=== PATIENT | female | born 1950 | race Caucasian/White ===

== ENCOUNTER → 2017-11-28 | Outpatient (CLI) | payer BC ==
--- NOTE | 2017-11-28 19:12 | CT ---
EXAM: CT Angiography Chest With Intravenous Contrast CLINICAL HISTORY: [id number]. Shortness of breath. TECHNIQUE: Axial computed tomographic angiography images of the chest with intravenous contrast using pulmonary embolism protocol. CTDI is 24.0 mGy and DLP is 149.9 mGy-cm. This CT exam was performed using one or more of the following dose reduction techniques: automated exposure control, adjustment of the mA and/or kV according to patient size, and/or use of iterative reconstruction technique. MIP reconstructed images were created and reviewed. Coronal and sagittal reformatted images were created and reviewed. COMPARISON: No relevant prior studies available. FINDINGS: Pulmonary arteries: Small weblike filling defect proximal left upper lobe pulmonary artery may be artifact, cannot exclude a sequela of old pulmonary embolism, axial images 54-51, and sagittal image 95, coronal image 62. Prominent left pulmonary artery may be pulmonary arterial hypertension. Aorta: No acute findings. No thoracic aortic aneurysm. Lungs: Mild peribronchial thickening. No mass. Pleural space: Unremarkable. No significant effusion. No pneumothorax. Heart: Small pericardial fluid. No evidence of RV dysfunction. Bones/joints: Superior endplate of T12 Schmorl's nodule with mild compression deformity, age-indeterminate. No dislocation. Soft tissues: Unremarkable. Lymph nodes: Small to borderline mediastinal lymph nodes. Other findings: Right chest port. IMPRESSION: 1. Small, weblike filling defect proximal left upper lobe pulmonary artery may be artifact, cannot exclude a sequela of old pulmonary embolism, axial images 54-51, and sagittal image 95, coronal image 62. 2. Prominent left pulmonary artery may be pulmonary arterial hypertension. 3. Mild peribronchial thickening, query bronchitis. No focal infiltrate or consolidation. 4. Superior endplate of T12 Schmorl's nodule with mild compression deformity, age-indeterminate.
== END | disposition home or self-care (01) ==
LOC: RADCTMAIN 16:43
PROVIDERS: ATTEND Internal Medicine Hematology & Oncology
DX: J98.09 Other diseases of bronchus, not elsewhere classified (principal); R91.8 Other nonspecific abnormal finding of lung field
CPT/HCPCS: 71275; Q9967

== ENCOUNTER → 2018-12-02 | Outpatient (CLI) | payer MEDICARE ==
--- NOTE | 2018-12-04 09:16 | MM ---
Reason for exam: screening (asymptomatic). Last mammogram was performed 5 years and 8 months ago. History: Patient is postmenopausal. Took hormonal contraceptives for 10 years. Physical Findings: A clinical breast exam by your physician is recommended on an annual basis and results should be correlated with mammographic findings. MG 3D Screening Mammo W/Cad Bilateral CC and MLO view(s) were taken. Prior study comparison: March 24, 2013, bilateral digital screening mammo w/CAD. June 29, 2010, bilateral digital screening mammogram. There are scattered fibroglandular densities. Lateral left breast nodularity is unchanged. A couple left punctate calcifications posteriorly also unchanged. No significant changes when compared with prior studies. ASSESSMENT: Negative, BI-RAD 1 RECOMMENDATION: Routine screening mammogram of both breasts in 1 year.
== END ==
LOC: RADMAMWWP 14:36
PROVIDERS: ATTEND Midwife
DX: Z12.31 Encounter for screening mammogram for malignant neoplasm of breast (principal)
CPT/HCPCS: 77063; 77067

== ENCOUNTER → 2018-12-20 | Outpatient (CLI) | payer MEDICARE ==
--- NOTE | 2018-12-20 14:25 | BD ---
EXAMINATION TYPE: Axial Bone Density DATE OF EXAM: 12/20/2018 COMPARISON: NONE CLINICAL HISTORY: Osteoporosis Height: 5 FT 4 IN Weight: 117 FRAX RISK QUESTIONS: Secondary Osteoporosis: 3. 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 Bone mineral density as measured about the Lumbar spine is: ----- L1-L4(G/cm2): 0.867 T Score Values are as follows: ----- L2: -2.8 ----- L3: -2.2 ----- L4: -2.5 ----- L1-L4: -2.6 Bone mineral density has: INCREASED 8.4 %SINCE STUDY 2009 Bone mineral density about the R hip (g/cm2): 0.566 Bone mineral density about the L hip (g/cm2): 0.590 T Score values are as follows: -----R Neck: -3.4 -----L Neck: -3.2 -----R Total: -3.3 -----L Total: -3.1 Bone mineral density has: DECREASED -10.0%SINCE STUDY 2009 IMPRESSION: Osteoporosis (T Score less than -2.5). There is increased fracture risk and therapy is usually indicated based on age. Re-Screen 1-2 years. NOTE: T-SCORE=SD OF THE YOUNG ADULT MEAN.
== END | disposition home or self-care (01) ==
LOC: RADBDWWP 13:04
PROVIDERS: ATTEND Midwife
DX: M81.0 Age-related osteoporosis without current pathological fracture (principal)
CPT/HCPCS: 77080

== ENCOUNTER → 2019-12-04 | Outpatient (CLI) | payer MEDICARE ==
--- NOTE | 2019-12-05 13:37 | MM ---
Reason for exam: screening (asymptomatic). Last mammogram was performed 1 year ago. History: Patient is postmenopausal. Took hormonal contraceptives for 10 years. Physical Findings: A clinical breast exam by your physician is recommended on an annual basis and results should be correlated with mammographic findings. MG 3D Screening Mammo W/Cad Bilateral CC and MLO view(s) were taken. Prior study comparison: December 02, 2018, bilateral MG 3d screening mammo w/cad. March 24, 2013, bilateral digital screening mammo w/CAD. There are scattered fibroglandular densities. Stable intramammary node left upper outer quadrant. No significant changes when compared with prior studies. ASSESSMENT: Negative, BI-RAD 1 RECOMMENDATION: Routine screening mammogram of both breasts in 1 year.
== END | disposition home or self-care (01) ==
LOC: RADMAMWWP 16:33
PROVIDERS: ATTEND Family Medicine
DX: Z12.31 Encounter for screening mammogram for malignant neoplasm of breast (principal)
CPT/HCPCS: 77063; 77067

== ENCOUNTER 2020-04-08 10:47 | Outpatient (CLI) | payer MEDICARE | END 2020-04-08 10:48 | disposition home or self-care (01) | LOC: LABWHC1 10:47 | PROVIDERS: ATTEND Nurse Practitioner Adult Health | DX: Z53.9 Procedure and treatment not carried out, unspecified reason (principal) ==

== ENCOUNTER → 2020-05-25 | Outpatient (CLI) | payer MEDICARE ==
[2020-05-25 14:13] LABS: HCT 47.2 % (34.0-46.0); HGB 15.1 gm/dL (11.4-16.0); MCH 31.8 pg (25.0-35.0); MCV 99.6 fL (80.0-100.0); Mean Platelet Volume 7.3; Platelet Count 295 k/uL (150-450); RBC 4.74 m/uL (3.80-5.40); RDW 13.3 % (11.5-15.5); WBC 8.9 k/uL (3.8-10.6)
[2020-05-25 14:24] LABS: African American GFR (CKD) >90 (>60 ml/min/1.73 sqM); Anion Gap 5 mmol/L; Blood Urea Nitrogen 15 mg/dL (7-17); Carbon Dioxide 29 mmol/L (22-30); Chloride 103 mmol/L (98-107); Non-African American GFR(CKD) >90 (>60 ml/min/1.73 sqM); Potassium 4.8 mmol/L (3.5-5.1); Sodium 137 mmol/L (137-145)
== END | disposition home or self-care (01) ==
LOC: LABPAT 13:10
PROVIDERS: ATTEND Internal Medicine Interventional Cardiology
DX: Z01.818 Encounter for other preprocedural examination (principal); I25.10 Atherosclerotic heart disease of native coronary artery without angina pectoris
CPT/HCPCS: 36415; 80051; 82565; 84520; 85027

== ENCOUNTER 2020-05-31 09:13 | Day surgery (SDC) | payer MEDICARE ==
[2020-05-25 12:49] VITALS: BMI 20.1
[~2020-05-31 09:13] MED LIST: ALPRAZolam 0.25 MG TAB PO PRN; ALPRAZolam 0.5 MG TAB PO PRN; ASPIRIN 325 MG TAB PO ONE; ATORVASTATIN 80 MG TAB PO ONE; NITROGLYCERIN SL TABS 0.4 MG TAB SUBLINGUAL PRN; SODIUM CHLORIDE 0.9% 1,000 ML in EMPTY BAG 1 BAG IV ONE
[2020-05-31] MEDS ORDERED: LIDOCAINE 1% INJ 10MG/ML (20 ML MDV) ONE (09:53)
[2020-05-31] MEDS ORDERED: VERAPAMIL 2.5 MG/ML 2 ML AMP ONE (09:54)
[2020-05-31] MEDS ORDERED: SODIUM CHLORIDE 0.9% 1,000 ML IV ONE (09:57)
[2020-05-31 10:00] VITALS: RESP 16; TEMP 53.8
[2020-05-31] MEDS ORDERED: HEPARIN SODIUM 1,000 UN/ML (10ML VL) ONE (10:18)
[2020-05-31] MEDS ORDERED: fentaNYL (PF) 50 MCG/ML 2 ML AMP ONE (10:18)
[2020-05-31] MEDS: MIDAZOLAM 2 MG/2 ML VIAL IVP ONE ×2 (10:31→10:38)
[2020-05-31] MEDS ORDERED: LIDOCAINE 1% INJ 10MG/ML (20 ML MDV) SQ ONE (10:32)
[2020-05-31] MEDS: VERAPAMIL SYRINGE (5 MG/10 ML) INTRAARTER ONE ×2 (10:33→10:51)
[2020-05-31] MEDS ORDERED: HEPARIN SODIUM 1,000 UN/ML (10ML VL) IV ONE (10:34)
[2020-05-31] MEDS ORDERED: IOPAMIDOL-370 125ML BTL INJ ONE (10:51)
[2020-05-31] MEDS ORDERED: RX INFO: IV CONTRAST WAS GIVEN 1 EACH MISC MISCELLANE PRN (10:57)
[2020-05-31] MEDS ORDERED: SODIUM CHLORIDE 0.9% 1,000 ML IV SCH (11:00)
[2020-05-31] MEDS ORDERED: METOPROLOL TARTRATE 12.5 MG TAB PO STA (11:12)
--- NOTE | 2020-05-31 15:42 | CC ---
CARDIAC CATHETERIZATION REPORT DATE OF SERVICE: 05/31/2020 PERFORMING PHYSICIAN: Fady Snow M.D. PROCEDURE PERFORMED: Selective right and left coronary angiogram. INDICATION: This is a 69-year-old female patient with significant history of smoking who was experiencing symptoms of chest pain and shortness of breath. She underwent a CT scan that revealed coronary calcifications. Because of the nature of her symptoms as well as the coronary artery disease on CT and history of smoking, I decided to pursue heart catheterization. APPROACH: Right radial artery. COMPLICATIONS: None. LEVEL OF SEDATION: Moderate, with sedation length of 22 minutes. PROCEDURE DESCRIPTION: After obtaining informed consent, the patient was brought to the cardiac dental laboratory worker. The right radial artery was cannulated using micropuncture technique. The micropuncture wire passed easily. Then I placed a 6-Sinhala sheath in the right radial artery. Verapamil IA 2 mg and 8000 units of heparin IV was given. Selective right and left coronary angiogram was performed using JR4 and JL3.5 catheters. Left heart catheterization was not performed. SELECTIVE CORONARY ANGIOGRAM: 1. The right coronary artery is a large-caliber vessel. It is a dominant vessel. The RCA is calcified with mild disease in the mid portion. Distally it bifurcates into PDA and PLV branches; both appeared to be angiographically normal. 2. The left main is angiographically normal. It bifurcates into LCX and LAD. 3. The LCX is an intermediate-caliber vessel and seems to be angiographically normal. 4. The LAD is a large-caliber vessel. The LAD is angiographically normal as well. CONCLUSION: 1. Mild non-obstructive coronary artery disease. 2. Calcified right and left coronary system. POST-PROCEDURE MANAGEMENT: 1. Medical treatment. 2. Follow up with the patient. MMODL / IJN: [id number] /
[2020-05-31 16:58] VITALS: BP 124/68; PULSE 69
== END 2020-05-31 16:00 | disposition home or self-care (01) ==
LOC: CATHCVL 09:13
PROVIDERS: ATTEND Internal Medicine Interventional Cardiology
DX: I25.110 Atherosclerotic heart disease of native coronary artery with unstable angina pectoris (principal); F17.200 Nicotine dependence, unspecified, uncomplicated; Z85.038 Personal history of other malignant neoplasm of large intestine; Z79.51 Long term (current) use of inhaled steroids; Z79.899 Other long term (current) drug therapy
CPT/HCPCS: 93454; C1769; C1894; J2250; J2001; J1644; Q9967

== ENCOUNTER 2020-08-17 10:29 | Day surgery (SDC) | payer MEDICARE ==
[~2020-08-17 10:29] MED LIST changes: -ALPRAZolam 0.25 MG TAB PO PRN; -ALPRAZolam 0.5 MG TAB PO PRN; -ASPIRIN 325 MG TAB PO ONE; -ATORVASTATIN 80 MG TAB PO ONE; +LACTATED RINGERS 1,000 ML IV SCH; +LIDOCAINE 1% (10MG/ML) FOR IV START INTRADERMA PRN; -NITROGLYCERIN SL TABS 0.4 MG TAB SUBLINGUAL PRN; -SODIUM CHLORIDE 0.9% 1,000 ML in EMPTY BAG 1 BAG IV ONE
[2020-08-17 10:58] VITALS: TEMP 97.6
[2020-08-17] MEDS ORDERED: LIDOCAINE 1% INJ 10MG/ML (20 ML MDV) ONE (11:26)
[2020-08-17] MEDS ORDERED: PROPOFOL 10 MG/ML 20 ML VIAL IV ONE (11:26)
--- NOTE | 2020-08-17 11:34 | P.GSHP ---
History of Present Illness H&P Date: 08/17/20 Chief Complaint: Colon cancer 69-year-old female known to our service. History of right colectomy 2017. Last colonoscopy 2-3 years ago. No bowel complaints. Past Medical History Past Medical History: Cancer, COPD Additional Past Medical History / Comment(s): Colon cancer , CARDIO MYOPATHY , History of Any Multi-Drug Resistant Organisms: None Reported Additional Past Surgical History / Comment(s): Colon surgery to remove mass - August 2018. COLONOSCOPY. HAS A PORT A CATH Past Anesthesia/Blood Transfusion Reactions: No Reported Reaction Smoking Status: Former smoker - Past Family History Mother Family Medical History: No Reported History Medications and Allergies Home Medications Medication Instructions Recorded Confirmed Type Alendronate Sodium [Fosamax] 70 mg PO COLBERT 05/25/20 08/17/20 History Aspirin [Adult Low Dose Aspirin EC] 81 mg PO DAILY 05/25/20 08/13/20 History Fluticasone/Umeclidin/Vilanter 1 puff INHALATION DAILY 05/25/20 08/17/20 History [Trelegy Ellipta 100-62.5-25] Metoprolol Tartrate [Lopressor] 12.5 mg PO BID 05/25/20 08/17/20 History Allergies Allergy/AdvReac Type Severity Reaction Status Date / Time No Known Allergies Allergy Verified 08/17/20 10:41 Surgical - Exam Vital Signs Temp Pulse Resp BP Pulse Ox 97.6 F 76 17 96/70 96 08/17/20 10:53 08/17/20 10:53 08/17/20 10:53 08/17/20 10:53 08/17/20 10:53 Physical exam: General: Well-developed, well-nourished HEENT: Normocephalic, sclerae nonicteric Abdomen: Nontender, nondistended Extremities: No edema Neuro: Alert and oriented Assessment and Plan (1) Cancer of right colon Narrative/Plan: Will proceed with colonoscopy Current Visit: Yes Status: Acute Code(s): C18.2 - MALIGNANT NEOPLASM OF ASCENDING COLON SNOMED Code(s): 944048477
--- NOTE | 2020-08-17 11:44 | P.PCN ---
Date of Procedure: 08/17/20 Procedure(s) Performed: PREOPERATIVE DIAGNOSIS: History of right-sided colon cancer POSTOPERATIVE DIAGNOSIS: Mild diverticulosis PROCEDURE: Colonoscopy ANESTHESIA: MAC SURGEON: Mynor Burgos M.D. SPECIMENS: None ENDOSCOPIC PROCEDURE: The patient was placed on the endoscopy table in the left decubitus position. The Olympus colonoscope was inserted into the anus and passed under direct visualization to the ileocolonic anastomosis. The anastomosis was widely patent. No blankets he was seen. The transverse descending sigmoid and rectum appeared normal. There was mild left-sided diverticulosis. Digital rectal examination was normal. The patient was taken to the recovery room in stable condition per anesthesia guidelines. RECOMMENDATIONS: Resume diet. Follow colonoscopy 3-5 years.
[2020-08-17 11:51] VITALS: RESP 16
[2020-08-17 12:16] VITALS: BP 107/53; PULSE 64
== END 2020-08-17 12:30 | disposition home or self-care (01) ==
LOC: ORWHC2ENDO 10:29
PROVIDERS: ATTEND Surgery
DX: Z12.11 Encounter for screening for malignant neoplasm of colon (principal); Z85.038 Personal history of other malignant neoplasm of large intestine; K57.30 Diverticulosis of large intestine without perforation or abscess without bleeding; J44.9 Chronic obstructive pulmonary disease, unspecified; I42.9 Cardiomyopathy, unspecified; Z98.0 Intestinal bypass and anastomosis status; Z87.891 Personal history of nicotine dependence; Z79.82 Long term (current) use of aspirin; Z79.83 Long term (current) use of bisphosphonates; Z79.899 Other long term (current) drug therapy
CPT/HCPCS: G0105; J2001; J2704; 45378

== ENCOUNTER → 2022-04-27 | Outpatient (CLI) | payer MEDICARE ==
[~2022-04-27] MED LIST changes: -LACTATED RINGERS 1,000 ML IV SCH; -LIDOCAINE 1% (10MG/ML) FOR IV START INTRADERMA PRN; +SODIUM CHLORIDE 0.9% 1,000 ML IV ONE; +SODIUM CHLORIDE 0.9% 500 ML 500 ML in EMPTY BAG 1 BAG IV PRN
[2022-04-27 12:38] VITALS: BP 154/98; PULSE 82; RESP 16; TEMP 97.6
== END ==
LOC: PROCWHC3 12:13
PROVIDERS: ATTEND Internal Medicine Hematology & Oncology
DX: C18.2 Malignant neoplasm of ascending colon (principal); Z87.891 Personal history of nicotine dependence
CPT/HCPCS: 96360; 96361; J1642

== ENCOUNTER 2022-06-27 06:32 | Inpatient (IN) | payer MEDICARE ==
--- NOTE | 2022-06-26 09:47 | P.HPOR ---
History of Present Illness H&P Date: 06/22/22 Chief Complaint: Mid back pain, [facility] History and Physical Date of :[birth year] Age: 71 year Height: 5'4" Weight: 90 lbs BMI: 15.45 kg/m2 Occupation: Retired VAS: 10 CHIEF COMPLAINT: Thoracic pain DOI:03/2022 DOS: N/A Duration of current treatment regiment: Current, 2 months HISTORY : Xrays brought xrays from outside facility which were reviewed No new xrays taken in office Trauma or injury yes ,patient fell downstairs(2-3 steps) Work-Related No Pain description sharp, shooting Location posterior Patient notes that their pain radiates to bilateral lower extremities Activity Modification yes Hand Dominance right TREATMENTS COMPLETED: 6 weeks of PT completed? Month and Year of last PT date? None No Physician recommended home exercise completed? Duration of HEP course: None No Medications yes List: MS Contin, Xanax both with mild relief Alternative interventions Chiropractic: No Massage therapy: No R.I.C.E: No Brace: No Injections No RFA: No SUBJECTIVE: Ms. Richards returns to the office for a recheck of their thoracic pain. Patient reports no changes to her symptoms as reported yesterday by Carolyn Gross NP-C and is having continued, severe debility due to her pain. Overall the patient has seen a progressive increase in symptoms since their onset. Ms. Richards symptoms are exacerbated with any standing or ambulation, due to this they notes that it is increasingly difficult for Ms. Richards to complete many of their daily tasks. Patient is having severe sleep disturbances as well due to their ongoing pain and associated symptoms. Regarding treatments, the patient has previously trialed both MS Contin and Xanax both without any relief of her symptoms. Patient denies trialing any other modalities at this time. Otherwise the patient denies any f/c/sob/cp, no incision concerns, no bladder or bowel retention/incontinence, no perineal numbness/tingling, and is non-ambulatory and using a wheelchair. HISTORY: Ms. Richards was last seen on 06/21/2022 regarding thoracic pain. Patient states the proximally 2 months ago she had fallen down 2-3 steps. She denies any episode of lightheadedness or dizziness. She states she had just lost her footing. Patient denies any numbness tingling to bilateral lower extremities. She denies hitting her head or LOC. Patient states she did see Dr. 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 Patient has not trialed any modalities at this time. She is currently taking MS Contin 15 mg twice a day and Xanax as needed. Otherwise patient denies any f/c/sob/cp, no bladder or bowel retention/incontinence, no perineal numbness/tingling, Patient is wheelchair bound. The patients' past social, medical, family, surgical history, as well as review of systems, have been reviewed. Please refer to the Neurosurgery History and Physical form that has been scanned in to our electronic medical record system. 16 points review of systems completed and as stated in HPI, all other systems reviewed are negative. Social History: Reviewed, see appropriate section of the chart for details. P3 Social History: Smoking: never a smoker P3 Alcohol: none P3 [id number] History: Reviewed, see appropriate section of the chart for details. P2 Past Medical History: Reviewed, see appropriate section of the chart for details. P1 Current Medications: Rx: aspirin 81 mg chewable tablet Ref: 0 Rx: MS Contin 15 mg tablet,extended release Ref: 0 Rx: Xanax Ref: 0 PHYSICAL EXAMINATION: General: Awake, alert, appropriate for age, in no acute distress. HEENT: No unusual neck masses around region of lateral neck triangle, thyroid, supraclavicular groove Heart: Regular rate and rhythm, normal S1, S2 and no murmur/gallop. Lungs: Clear to auscultation bilaterally with no use of accessory muscles. Extremities: Skin warm and dry without acute lesions, coloration, temperature, skin intact, no tenderness or erythema Integument: Hairy patches: ABSENT Dorsal skin dimples: ABSENT Cafe au lait spots: ABSENT Surgical incisions: NONE Palpation: Please see Pain drawing on Intake sheet for further detail. Midline spinal tenderness: yes E6 Cervical Tenderness: No E6 Paralumbar tenderness: No E6 Parathoracic tenderness: he has severe midline tenderness secondary to her fracture around the T4 region as well as T12. E6 Buttocks tenderness: No E6 Sacroiliac Tenderness: No POSTURAL and MUSCULO-SKELETAL EVALUATION: Coronal Balance: NEUTRAL Recumbent testing: Patient is able to lay flat on back Sagittal Balance: NEUTRAL Shoulder Profile: LEVEL Pelvic Girdle: LEVEL Neck ROM: RESTRICTED Lumbar ROM: RESTRICTED Shoulder ROM: Symmetrical Hip ROM: Symmetrical Knee ROM: Symmetrical Hands: Normal appearance, symmetrical Feet: Normal appearance, Symmetrical VASCULAR STATUS : LEFT RIGHT Wrist Pulses INTACT INTACT Pedal Pulses (Dors. pedis & post.tibialis) INTACT INTACT Color NORMAL NORMAL Edema Absent Absent NEUROLOGIC EXAMINATION: Mental Status:Awake and alert, fully oriented, with normal attention, concentration and memory, and fluent, appropriate speech. Cranial Nerves: I: Olfactory not tested. II: Visual acuity normal, no visual field deficit noted with confrontation. III,IV: Normal pupillary reflexes & intact extraocular movements without nystagmus. V,: Intact symmetrical facial sensation. VII: Intact symmetrical facial motor movement VIII: Hearing intact. IX,X: Intact gag, swallow, & normal voice. XI: Sternocleidomastoid, trapezius function intact. XII: Tongue midline with normal movements. L'hermitte's Sign: Negative / absent Spurling'Sign: Absent bilaterally. Cubital percussion test: Absent bilaterally. Virgen-Tinel sign - Carpal region: Absent bilaterally. Straight Leg Raising: Absent bilaterally. Crossed straight leg raise: negative O8 MOTOR EXAM (0-5/5, N/T) 4+ over 5 in all major muscle groups of the upper extremity bilaterally secondary to her chronic conditions 3+ out of 5 in all major muscle groups the lower extremity is bilaterally secondary to her chronic condition she is currently wheelchair bound due to her pain REFLEXES(0-4/2, NT)Upper Extremity Lower Extremity Right 2 2 Left 2 2 Pathological Reflexes RIGHT LEFT Virgen's Absent Absent Clonus Absent Absent Babinski Absent Absent # Indicates mechanical impairment Muscle appearance: Symmetrical, without signs of atrophy or dystrophy. Rectal Tone:Deferred Sensory system (0-4, N/T) Test type RU FAVIOLA RL LL Joint-Position 2 2 2 2 Vibration 2 2 2 2 Pain & LT sense 2 2 2 2 Dermatomal Deficit: None None None None Gait and Functional Evaluation: Ambulatory aids: Wheelchair Romberg's test: Intact bilaterally Toe heel walk / heel-toe walk intact while maintaining satisfactory balance? No Squatting/straightening w/o assistance to a min of 60 degree knee flexion? No Single leg stance: BERNARDO Hand and finger dexterity intact bilaterally? yes Disdiadochokinesis examination negative bilaterally? yes RADIOGRAPHIC STUDIES: XRay taken on 06/21/22 of Lumbar Spine and Pelvis: images reviewed and demonstrate kyphotic deformity throughout the thoracic spine. There is old compression fracture noted at T12 and likely new compression fracture at T4 there is acute kyphotic deformity at T4 secondary to this. There is more chronic kyphotic deformity at T12 due to the compression. T12 is approximate 75% compressed will T4 is more 20-25% compressed. Patient has history of colon cancer and these are likely pathologic in nature. There are no other fractures noted at this time. There is spondylosis noted throughout the spine. Overall alignment is fairly well maintained otherwise. MRI [id number]/14/2022 of Thoracic Spine: images are reviewed and demonstrate a acute compression fracture of T4 with increased signal intensity within the body and 25% collapse. There is acute kyphotic deformity at this level secondary to the collapse in the anterior compression. There is old compression deformity noted at T12 which is 75% compressed however this is chronic in nature with no increased uptake or edema. There is no retropulsion of any fragments there is no severe stenosis noted. There is no myelomalacia noted. There is spondylotic changes noted throughout t he spine. There is overall kyphotic deformity noted. IMPRESSION: It was my pleasure to have seen and examined Dariana. I reviewed the patient's clinical syndrome, physical findings, and imaging studies during the appointment today. It is my impression that the patient has a diagnosis of. 1. T4 VCF Acute 2. T12 VCF Chronic 3. Mechanical back pain 4. hx of primary colon cancer with mets to liver and lung 5. Osteoporosis I outlined the natural course history without intervention and various interventional options. PLAN: Based on my findings I suggest the following course of action: -Advised patient to continue with supplements, health maintenance, and home exercise programs. Patient expressed understanding and will continue with these modalities. -I discussed treatment options with the patient, including operative and non- operative options, and they have elected to proceed with the following surgical procedure: thoracic (T4) Kyphoplasty The indications, risks, benefits, and alternatives to surgery were discussed wi th the patient and family at length. Specifically (but not limited to) the risks of infection, stiffness, recurrence of symptoms, need for revision surgery, local numbness, neurovascular injury, and blood clots were discussed. The patient's questions were answered. The decision to proceed was made. Consent will be obtained for the procedure. Spine Surgery Risk Review Ms. Richards is presenting for evaluation of thoracic pain. It was my pleasure to have seen and examined Ms. Richards. In our visit today we have had a chance to go over subjective complaints, physical examination findings and treatments including the natural course history without intervention and various interventional options. The patients imaging demonstrates: XRay taken on 06/21/22 of Lumbar Spine and Pelvis: images reviewed and demonstrate kyphotic deformity throughout the thoracic spine. There is old compression fracture noted at T12 and likely new compression fracture at T4 there is acute kyphotic deformity at T4 secondary to this. There is more chronic kyphotic deformity at T12 due to the compression. T12 is approximate 75% compressed will T4 is more 20-25% compressed. Patient has history of colon cancer and these are likely pathologic in nature. There are no other fractures noted at this time. There is spondylosis noted throughout the spine. Overall alignment is fairly well maintained otherwise. MRI [id number]/14/2022 of Thoracic Spine: images are reviewed and demonstrate a acute compression fracture of T4 with increased signal intensity within the body and 25% collapse. There is acute kyphotic deformity at this level secondary to the collapse in the anterior compression. There is old compression deformity noted at T12 which is 75% compressed however this is chronic in nature with no increased uptake or edema. There is no retropulsion of any fragments there is no severe stenosis noted. There is no myelomalacia noted. There is spondylotic changes noted throughout the spine. There is overall kyphotic deformity noted. On physical exam, Ms. Richards demonstrates severe pain with palpation midline on the thoracic spine up around the T4 region. She is wheelchair bound due to pain at this time.. I have explained to the patient that as their condition progresses it will cause further neurological deficits and eventual paralysis. Based on the patients imaging, physical exam, and the rapid progression and disabling nature of their symptoms, at this time I recommend surgery in the form or a: thoracic (T4) Kyphoplasty . I discussed the risk and benefits of this procedure at length with Ms. Richards. The patient and her brother agreed to considered pursuing the procedure abovementioned. Prior to surgery, she should follow up with her PCP (Cardio, ID, IM etc) for clearance. Questions were invited and answered, and the patient wishes to proceed as outlined below. Currently, I am recommendin. thoracic (T4) Kyphoplasty 2.Follow up with PCP for surgical clearance 3.Review of surgical risks and benefits as well as an educational packet on the proposed surgical procedure. Risks: All surgical procedures come with inherent risks, including those related to positioning, anesthesia, intraoperative findings, and postoperative complications. It is important to understand that surgery does not come with any guarantee of a successful outcome as complications and adverse events are always possible. The patient was given a handout in office today discussing the surgical procedure and risks associated with the intervention, both of which were discussed with the patient. These risks include but are not limited to the following: * Experiencing same, different or even worse symptoms in back, neck, arms, or legs compared to before surgery. Requiring further surgery or other forms of treatment presently or at some time in the future at same or other levels of the intended spine surgery. On an extreme but fortunately relatively rare basis severe complication such as blindness, stroke, heart attack, temporary and/or permanent nerve injury, paralysis, coma, or may occur, sometimes without known explanation. Surgical complications may include but are not limited to risk of infection, fluid accumulation in the surgical dissection site, including a seroma or hematoma, that requires additional surgery, wound drainage, bleeding, new numbness or weakness, vision changes/loss, spinal fluid leakage, non-healing and/or infected incision, headaches, difficulty or inability to swallow, hoarseness, hemopneumothorax, pneumothorax, impotence, retrograde ejaculation, vaginal dryness; injury to nerves, spinal cord, blood vessels, lymphatics or other vital organs (i.e., bowel injury, injury to the great vessels); heterotopic bone formation; complications related to the hardware such as screws, rods, cages including misplaced hardware, device failure, instrumentation at the wrong spine level, hardware fracture/breakage, or hardware loosening; vertebral failure of the spinal column above or below the newly placed hardware; retained surgical instrumentations or devices and the need for further surgery. * Medical risks of the planned spine surgery include but are not limited to generalized Infections to the whole body or local areas outside of the surgical site (sepsis), heart attack, bleeding, anaphylaxis, meningitis, seizure, epilepsy, hearing loss, burn graham, laceration of the head or other areas of the body, bruising, hypersensitivity of the skin, bladder over distension; allergic reaction; shoulder injury related to positioning; fat, blood and air clots to other areas of the body like heart, lungs, brain; failure of internal organs such as lungs, kidneys, liver and excessive bleeding. If blood transfusions are necessary, note that transfusions may cause intolerance reactions such as anaphylaxis or other complex reactions. Despite best efforts, the results of spine surgery might not heal in terms of bone, soft tissues such as skin, fascia, ligaments, and joints. Additionally, in order to achieve best possible results, spine surgery may be carried out beyond the initially planned levels and involve decompression, fusion including insertion of hardware at levels other than the original intended area of surgical interest change some portions of the procedure in order to ensure the best possible outcomes. With spine surgery and spinal fusion, there are different off label uses of i nstrumentation (devices, implants and hardware) as well as biological substances (bone morphogenic proteins, demineralized bone matrix) as well as using extra bone from allograft sources (i.e. cadaver bone) or autograft (iliac crest bone, ribs, or the spine itself). The patient has been given information about these practices and their inherent risks and benefits. [facility] is an educational center that serves as a training facility for neurosurgical and orthopedic SCALLOPER and Nursing students. Physician assistants are medically trained surgical providers who function in the outpatient, inpatient, and operating room setting under the direct supervision of the attending surgeon. [facility] has multiple operating rooms with single and overlapping rooms running daily. They currently function under the required guidelines as produced by the [facility] Finance Committee with regards to the overlapping rooms and will continue to comply with changes to this policy as they occur. The requirements include and are complied with as follows: (1) the critical portions of the overlapping rooms will not occur at the same time, (2) the attending physician will be physically present during the critical portions of the procedure and immediately available during the entire case, and (3) a back-up attending is designated should the primary attending not be immediately available. The patient has had a chance to review all the listed information, has been given print outs detailing this information, and has had all his/her questions answered to their satisfaction. It was my pleasure to have seen and examined Ms. Richards. In our visit today we have had a chance to go over my understanding of our patient's current condition, the natural course history without intervention and various interventional options. Questions were invited and answered, and the patient wishes to proceed as outlined above. I have seen and examined the patient for 25 minutes and we have spent more than 50% of the time in repeat and detailed counseling about the patient's condition, its natural course history with out and as much as can be predicted with surgery and re-review of various surgical treatment options. In conclusion, Ms. Richards and her brother requested we proceed with the above suggested surgery and are willing to accept risks and limitations of the suggested surgery as nature of the disease process and our best attempts at treatment for the condition. Thank you again for allowing us to be part of your patient's care. Please don't hesitate to contact me if you have any further questions. Signed and authenticated by: Magdiel [facility] Complex and Minimally Invasive Spine Surgery [address] [address] Past Medical History Past Medical History: Cancer, COPD Additional Past Medical History / Comment(s): Colon cancer, CARDIOMYOPATHY, RETURN OF CANCER WITH METS TO LIVER AND LUNG- 2020 History of Any Multi-Drug Resistant Organisms: None Reported Past Surgical History: Heart Catheterization Additional Past Surgical History / Comment(s): Colon surgery to remove mass - August 2018. HAS A PORT A CATH Past Anesthesia/Blood Transfusion Reactions: No Reported Reaction Past Psychological History: Anxiety Additional Psychological History / Comment(s): RELATED TO PAIN Smoking Status: Former smoker Past Alcohol Use History: None Reported Additional Past Alcohol Use History / Comment(s): STARTED SMOKING AT AGE 27 QUIT SMOKING 2018 SMOKED 1/2PPD Past Drug Use History: None Reported - Past Family History Mother Family Medical History: No Reported History Additional Family Medical History / Comment(s): cataracts Medications and Allergies Home Medications Medication Instructions Recorded Confirmed Type Prochlorperazine [Compazine] 1 tab PO DIRECTED PRN 04/25/21 06/23/22 History Morphine Sulfate ER [Ms Contin] 15 mg PO Q12HR 09/19/21 06/23/22 History ALPRAZolam [Xanax] 0.25 mg PO BID PRN 06/23/22 06/23/22 History Fluticasone/Umeclidin/Vilanter 1 inhalation INHALATION DIRECTED 06/23/22 06/23/22 History [Trelegy Ellipta 100-62.5-25] Furosemide [Lasix] 20 mg PO DAILY PRN 06/23/22 06/23/22 History oxyCODONE ER [OxyCONTIN] 15 mg PO Q4H PRN 06/23/22 06/23/22 History Allergies Allergy/AdvReac Type Severity Reaction Status Date / Time No Known Allergies Allergy Verified 06/23/22 11:03 Physical Examination Osteopathic Statement: *. No significant issues noted on an osteopathic structural exam other than those noted in the History and Physical/Consult.
[~2022-06-27 06:32] MED LIST changes: +ACETAMINOPHEN TAB 500 MG TAB PO PRN; +GABAPENTIN 300 MG CAP PO PRN; +ONDANSETRON 4 MG/2 ML VIAL IVP PRN; -SODIUM CHLORIDE 0.9% 1,000 ML IV ONE; -SODIUM CHLORIDE 0.9% 500 ML 500 ML in EMPTY BAG 1 BAG IV PRN; +TRANEXAMIC ACID IN NACL,ISO-OS 1,000 MG in SALINE 1 100ML.BAG IVPB PRN
[2022-06-27] MEDS ORDERED: LIDOCAINE 1% (10MG/ML) FOR IV START INTRADERMA ONE (07:15)
[2022-06-27] MEDS ORDERED: LACTATED RINGERS 900 ML IV ONE (07:15)
[2022-06-27] MEDS ORDERED: PROPOFOL 10 MG/ML 20 ML VIAL IV ONE (07:46)
[2022-06-27] MEDS ORDERED: MIDAZOLAM 2 MG/2 ML VIAL ONE (07:46)
[2022-06-27] MEDS ORDERED: PHENYLEPHRINE-0.9% NACL SYG 1,000 MCG/10 ML SYRINGE ONE (07:46)
[2022-06-27] MEDS ORDERED: BUPIVACAIN-EPI 0.25%-1:200,000 30 ML VIAL SQ ONE (07:51)
[2022-06-27] MEDS ORDERED: IOPAMIDOL M200 10 ML VIAL MISCELLANE ONE (07:51)
--- NOTE | 2022-06-27 08:49 | P.OP ---
Date of Procedure: 06/27/22 Preoperative Diagnosis: 1. T4 VCF 25% compressed, acute 2. Mid back pain 3. Hx metastatic colon CA Postoperative Diagnosis: 1. T4 VCF 25% compressed, acute 2. Mid back pain 3. Hx metastatic colon CA Procedure(s) Performed: 1. T4 kyphoplasty with biopsy 2. Flouroscopic needle localization of T4 Implants: kristopher cement Anesthesia: GETA Surgeon: Magdiel Aguirre Force Variation Equipment Tender #1: Carolyn Gross (Was present and assisted in all aspects of the case) Estimated Blood Loss (ml): 2 IV fluids (ml): 100 Urine output (ml): 0 Pathology: other (T4 vertebral body) Condition: stable Disposition: PACU Indications for Procedure: 71 yo female with hx of metestatic colon CA presented with increasing pain in her upper T spine. She was found to have an acute T4 fracture and since she has been in so much pain and has tried conservative measures and failed she would like surgical intervention. We discussed options and she has elected to proceed with T4 kyphoplasty. RIsks and benefits outlined in risk review. She is willing to proceed. Description of Procedure: The patient was seen and examined in the preoperative area. All preoperative protocols were followed. Informed consent was obtained risks and benefits of the procedure were discussed at length. Risks including bleeding infection damage to the surrounding tissue and risk of reoperation were discussed with the patient. Risk of anesthesia up to and including was a discussed with the patient. These are outlined in the risk review. They were willing to accept these risks and all of the risks of surgery. The patient was given a weight- based dose of antibiotics in the form of 2 g Ancef. The patient was seen and evaluated by the anesthesia team who deemed them fit for surgery. The site was marked, the patient was willing to proceed with the procedure. The patient was transferred to the operative suite by the Department of anesthesia. They were then drifted off to sleep by the department anesthesia and [anesthesia type] was performed. The patient tolerated this well. Once confirmation of lines and ventilation the patient was transferred to a [prone Konstantin table very carefully]. All bony prominences including wrists, elbows, axilla, chest, hips, and thighs, and feet were padded very well. Special attention was paid to the genitalia and these were padded accordingly. SCDs were placed on bilateral lower extremities and were connected. Arms were well padded and placed tucked at her side well-padded thumbs down. Once in position, again we confirmed good ventilation capabilities and that lines were running appropriately. The patient's upper thoracic spine was then exposed. 1010s were placed outlining the incision site. Standard alcohol was used to clean the incision site and allowed to dry. briefing was performed and needle localization under fluoroscopic imaging was used to localize T4 pedicle. C-arm was used to biomark the patient and confirm level for incision which was marked with a skin marker. Operative briefing was performed with all teams and everyone in agreement to proceed. The patient was then prepped and draped in a normal steril e fashion. Timeout was then performed and all parties were in agreement with the procedure to be performed. skin dana was made of the previous about marked. Jamshidi was introduced and biplanar fluoroscopy used to target the pedicle on the left of T4 this is advanced in the body once in good position under lateral prevent a biopsy with the biopsy needle and sent this to pathology then use the kyphoplasty drill and drilled forward until the anterior vertebral body. We then introduced the balloon the balloon was then inflated and under lateral fluoroscopic imaging we confirmed good reduction and pressures. We then used biplanar fluoroscopy and injected cement slowly into this area monitoring for any vital sign changes and there were none. Once the cement had good fill AP and lateral fluoroscopic images confirmed and the Jamshidi was removed. There is no cement myelogram is no cement angiogram. The wound was irrigated and cleaned and dressed with glue and a Band-Aid. The patient was transferred back to their hospital bed atraumatically. Patient was then awakened and extubated by the department of anesthesia having tolerated the procedure very well with no complications. They were transferred to the postoperative care unit in stable condition.
--- NOTE | 2022-06-27 09:38 | FL ---
Fluoroscopy HISTORY: Thoracic compression fractures 47 seconds fluoroscopy time supplied to the referring clinician. 11 intraoperative C-arm images docu ment the procedure. See dictated report from orthopedic surgery.
[2022-06-27] MEDS ORDERED: FUROSEMIDE 20 MG TAB PO PRN (21:17)
[2022-06-27] MEDS ORDERED: PROCHLORPERAZINE 10 MG TAB PO PRN (21:17)
[2022-06-27] MEDS ORDERED: oxyCODONE ER 15 MG TAB.ER.12H PO PRN (21:17)
[2022-06-27] MEDS: MORPHINE SULFATE ER 15 MG TABLET PO SCH (21:40)
[2022-06-27] MEDS: SYMBICORT 80-4.5 MCG INHALER INHALATION SCH (23:22)
[2022-06-27] MEDS: IPRATROPIUM 0.5 MG/2.5 ML NEBU INHALATION SCH (23:22)
[2022-06-28] MEDS: IPRATROPIUM 0.5 MG/2.5 ML NEBU INHALATION SCH ×4 (07:14→19:35)
[2022-06-28] MEDS: SYMBICORT 80-4.5 MCG INHALER INHALATION SCH ×2 (07:15→19:35)
[2022-06-28] MEDS: MORPHINE SULFATE ER 15 MG TABLET PO SCH ×2 (09:51→19:58)
[2022-06-28] MEDS: SODIUM CHLORIDE 0.9% 1,000 ML IV SCH ×2 (17:49→21:01)
[2022-06-28 18:08] LABS: ALT 40 U/L (4-34); AST 46 U/L (14-36); African American GFR (CKD) >90 (>60 ml/min/1.73 sqM); Albumin 3.3 g/dL (3.5-5.0); Albumin/Globulin Ratio 1.2; Alkaline Phosphatase 766 U/L (38-126); Anion Gap 8 mmol/L; Blood Urea Nitrogen 13 mg/dL (7-17); Calcium 8.7 mg/dL (8.4-10.2); Carbon Dioxide 35 mmol/L (22-30); Chloride 91 mmol/L (98-107); Globulin 2.7 g/dL; Glucose 85 mg/dL (74-99); Non-African American GFR(CKD) >90 (>60 ml/min/1.73 sqM); Sodium 134 mmol/L (137-145); Total Bilirubin 1.3 mg/dL (0.2-1.3)
[2022-06-28] MEDS ORDERED: ONDANSETRON 4 MG/2 ML VIAL IVP PRN (18:18)
[2022-06-28 19:10] LABS: Basophils # (A) 0.1 k/uL (0-0.2); Basophils % (A) 1 %; Eosinophils # (A) 0.4 k/uL (0-0.7); Eosinophils % (A) 3 %; HCT 43.4 % (34.0-46.0); HGB 13.7 gm/dL (11.4-16.0); Lymphocytes # (A) 0.6 k/uL (1.0-4.8); Lymphocytes % (A) 5 %; MCH 31.4 pg (25.0-35.0); MCHC 31.5 g/dL (31.0-37.0); MCV 99.6 fL (80.0-100.0); Macrocytosis Slight; Mean Platelet Volume 8.3; Monocytes # (A) 0.9 k/uL (0-1.0); Monocytes % (A) 7 %; Neutrophils # (A) 10.7 k/uL (1.3-7.7); Neutrophils % (A) 84 %; Platelet Count 192 k/uL (150-450); RBC 4.36 m/uL (3.80-5.40); RDW 15.9 % (11.5-15.5); WBC 12.8 k/uL (3.8-10.6)
[2022-06-28] MEDS: MORPHINE SULFATE 2 MG/ML SYRINGE IVP SCH ×2 (21:01→23:19)
[2022-06-28] MEDS: ONDANSETRON 4 MG TAB PO PRN (21:07)
[2022-06-29] MEDS: MORPHINE SULFATE 2 MG/ML SYRINGE IVP SCH (03:29)
[2022-06-29] MEDS: SYMBICORT 80-4.5 MCG INHALER INHALATION SCH ×2 (07:33→20:28)
[2022-06-29] MEDS: IPRATROPIUM 0.5 MG/2.5 ML NEBU INHALATION SCH ×4 (07:33→20:27)
[2022-06-29] MEDS: MORPHINE SULFATE 4 MG/ML SYRINGE IVP SCH ×5 (08:35→23:54)
[2022-06-29] MEDS: MORPHINE SULFATE ER 15 MG TABLET PO SCH ×2 (09:57→20:43)
[2022-06-29] MEDS: SODIUM CHLORIDE 0.9% 1,000 ML IV SCH (09:59)
[2022-06-29 15:15] VITALS: BMI 12.9
[2022-06-29] MEDS: ALPRAZolam 0.25 MG TAB PO PRN (21:15)
--- NOTE | 2022-06-30 02:12 | HP ---
HISTORY AND PHYSICAL HISTORY OF PRESENT ILLNESS: This is a 71-year-old white female, who was admitted outpatient surgery, where after she had cement vertebroplasty done by Orthopedics. She did think she could go home. She was too weak and fatigued. Her IV came out through the night. She did not want another one put in. Home medications have been restarted. She has metastatic colon cancer with possible pathologic fractures. She had large amounts of pain medicine for recurrent cancer. She had lots of weight loss from malnutrition. MEDICATIONS: She takes, 1. MS Contin. 2. Xanax. 3. Aspirin. PHYSICAL EXAMINATION: GENERAL: She is thin, cachectic. No acute distress. HEART: S1, S2. LUNGS: Decreased breath sounds x4. SKIN: Warm and dry. VASCULAR: Normal dorsalis pedis, posterior tibial. PSYCH: Flat mood and affect. NEUROLOGIC: Cranial nerves are intact. ASSESSMENT: She has acute compression fracture of T4 with increased signal, 25% collapse, acute kyphotic causing anterior compression, T12 with 75% compression, status post vertebroplasty, chronic pain, mild dehydration. Keep overnight, monitor nutrition, pain control, fluids. Possible discharge home in the morning. MMODL / IJN: [id number] /
[2022-06-30] MEDS: MORPHINE SULFATE 4 MG/ML SYRINGE IVP SCH ×5 (04:58→22:43)
[2022-06-30] MEDS: IPRATROPIUM 0.5 MG/2.5 ML NEBU INHALATION SCH ×4 (08:35→20:09)
[2022-06-30] MEDS: MORPHINE SULFATE ER 15 MG TABLET PO SCH ×2 (10:27→21:54)
[2022-06-30 10:39] LABS: ALT 52 U/L (4-34); AST 59 U/L (14-36); African American GFR (CKD) >90 (>60 ml/min/1.73 sqM); Albumin 3.1 g/dL (3.5-5.0); Albumin/Globulin Ratio 1.2; Alkaline Phosphatase 948 U/L (38-126); Anion Gap 6 mmol/L; Blood Urea Nitrogen 9 mg/dL (7-17); Carbon Dioxide 30 mmol/L (22-30); Chloride 98 mmol/L (98-107); Globulin 2.6 g/dL; Glucose 97 mg/dL (74-99); Non-African American GFR(CKD) >90 (>60 ml/min/1.73 sqM); Potassium 3.7 mmol/L (3.5-5.1); Sodium 134 mmol/L (137-145); Total Bilirubin 1.4 mg/dL (0.2-1.3); Total Protein 5.7 g/dL (6.3-8.2)
[2022-06-30 10:58] LABS: HCT 41.1 % (34.0-46.0); HGB 13.2 gm/dL (11.4-16.0); MCH 31.7 pg (25.0-35.0); MCHC 32.2 g/dL (31.0-37.0); MCV 98.5 fL (80.0-100.0); Macrocytosis Slight; Mean Platelet Volume 8.8; Platelet Count 189 k/uL (150-450); RBC 4.17 m/uL (3.80-5.40); RDW 15.9 % (11.5-15.5); WBC 14.3 k/uL (3.8-10.6)
[2022-06-30 11:34] LABS: Eosinophils # (M) 0.57 k/uL (0-0.7); Lymphocytes # (M) 0.72 k/uL (1.0-4.8); Monocytes # (M) 0.14 k/uL (0-1.0); Neutrophils # (M) 12.87 k/uL (1.3-7.7); Neutrophils % (M) 90 %; Nucleated Red Blood Cells 0 /100 WBC (0-0); Total Cells Counted 100
[2022-06-30] MEDS: SYMBICORT 80-4.5 MCG INHALER INHALATION SCH ×2 (12:09→20:09)
[2022-06-30] MEDS: SODIUM CHLORIDE 0.9% 1,000 ML IV SCH ×2 (16:02→22:45)
[2022-06-30] MEDS: LACTULOSE 20 GM/30 ML CUP PO ONE ×2 (20:19→21:55)
[2022-06-30] MEDS: ONDANSETRON 4 MG TAB PO PRN (21:54)
--- NOTE | 2022-07-01 01:11 | PN ---
PROGRESS NOTE SUBJECTIVE: A 71-year-old white female remains malnourished. We are going to put her on Marinol to help stimulate her appetite. She is not eating much at all. She is 93 pounds. OBJECTIVE: CARDIOVASCULAR: S1, S2. LUNGS: Scattered rhonchi and wheeze. HEMATOLOGY: Negative Homans. PSYCH: Fair mood and affect. ASSESSMENT: Chronic obstructive pulmonary disease, nicotine addiction, metastatic colon cancer with metastases to the liver. Give her IV pain medications for another day. She wants to go to retirement due to worsening compression fractures in her lower and mid back worsening pain. MMODL / IJN: [id number] /
[2022-07-01] MEDS: MORPHINE SULFATE 4 MG/ML SYRINGE IVP SCH ×6 (02:17→19:57)
[2022-07-01] MEDS: IPRATROPIUM 0.5 MG/2.5 ML NEBU INHALATION SCH ×4 (07:14→18:59)
[2022-07-01] MEDS: SYMBICORT 80-4.5 MCG INHALER INHALATION SCH ×2 (07:14→18:59)
[2022-07-01] MEDS: MORPHINE SULFATE ER 15 MG TABLET PO SCH ×2 (08:06→20:59)
--- NOTE | 2022-07-01 11:06 | P.PN ---
Progress Note - Text Progress Note Date: 06/30/22 Presenting complaint: T4 kyphoplasty Hospital course: I'm rounding for Dr. Johan Desouza This is a 71-year-old patient history of metastatic colon cancer presented with increasing pain in the upper T-spine. Found to have acute T4 fracture and has been having uncontrolled pain and has failed conservative measures. She underwent T4 kyphoplasty with biopsy by Dr. Aguirer on June 27. June 30: Patient having pain at the surgical site. Did eat her breakfast. Some nausea. Did manage to get to the bathroom. Current medications reviewed On examination: VITAL SIGNS: [97, 77, 16, 110/75, 92% room air,] GENERAL APPEARANCE: Resting in bed, tired HEENT: Normal external appearance of nose and ear. Oral cavity normal EYES: Pupils equal. Conjunctiva normal. NECK: JVD not raised. Mass not palpable. RESPIRATORY: Respiratory effort normal. Lungs decreased breath sounds CARDIOVASCULAR: First and second sounds normal. No edema. ABDOMEN: Soft. Liver and spleen not palpable. No tenderness. No mass palpable. PSYCHIATRY: Alert and oriented x3. Mood and affect normal. INVESTIGATIONS, reviewed in the clinical context: White count 14.3 hemoglobin 13.2 platelets 189 potassium 3.7 BUN 9 creatinine 0.3 to Assessment and plan: -T4 25% compressed fracture, acute followed by kyphoplasty with biopsy Follow with Dr. Aguirre. -COPD in a previous smoker Symbicort -Anxiety not otherwise specified Xanax when necessary -Nausea secondary to pain medication Zofran/Compazine as needed Increase activity as tolerated. Discussed with patient. Pain control. Other medications to continue.
[2022-07-01] MEDS: SODIUM CHLORIDE 0.9% 1,000 ML IV SCH (16:28)
--- NOTE | 2022-07-01 16:46 | P.PN ---
Progress Note - Text Progress Note Date: 07/01/22 Presenting complaint: T4 kyphoplasty Hospital course: I'm rounding for Dr. Johan Desouza This is a 71-year-old patient history of metastatic colon cancer presented with increasing pain in the upper T-spine. Found to have acute T4 fracture and has been having uncontrolled pain and has failed conservative measures. She underwent T4 kyphoplasty with biopsy by Dr. Aguirre on June 27. June 30: Patient having pain at the surgical site. Did eat her breakfast. Some nausea. Did manage to get to the bathroom. July 01: Pain at the operative site. Did eat some. Drinking ensure. Some shortness of breath. Activity encouraged. Active Medications Alprazolam (Alprazolam 0.25 Mg Tab) 0.25 mg PO BID PRN PRN Reason: Anxiety Last Admin: 06/29/22 21:15 Dose: 0.25 mg Budesonide/Formoterol Fumarate (Symbicort 80-4.5 Mcg Inhaler) 2 puff INHALATION RT-BID [facility] Last Admin: 07/01/22 07:14 Dose: 2 puff Dronabinol (Dronabinol 2.5 Mg Cap) 5 mg PO AC-BID [facility] Last Admin: 07/01/22 08:06 Dose: 5 mg Furosemide (Furosemide 20 Mg Tab) 20 mg PO DAILY PRN PRN Reason: Edema Sodium Chloride (Saline 0.9%) 1,000 mls @ 75 mls/hr IV .[id number] [facility] Last Admin: 07/01/22 16:28 Dose: Not Given Ipratropium [place] (Ipratropium 0.5 Mg/2.5 Ml Nebu) 0.5 mg INHALATION RT-QID [facility] Last Admin: 07/01/22 15:33 Dose: 0.5 mg Morphine Sulfate (Morphine Sulfate Er 15 Mg Tablet) 15 mg PO Q12HR [facility]; Protocol Last Admin: 07/01/22 08:06 Dose: 15 mg Morphine Sulfate (Morphine Sulfate 4 Mg/Ml Syringe) 4 mg IVP Q4HR [facility] Last Admin: 07/01/22 16:27 Dose: 4 mg Ondansetron HCl (Ondansetron 4 Mg Tab) 4 mg PO Q6HR PRN PRN Reason: Nausea And Vomiting Last Admin: 06/30/22 21:54 Dose: 4 mg Oxycodone HCl (Oxycodone Hcl 5 Mg Tab) 15 mg PO Q4H PRN; Protocol PRN Reason: Breakthrough Pain Last Admin: 07/01/22 13:52 Dose: 15 mg Prochlorperazine Maleate (Prochlorperazine 10 Mg Tab) 10 mg PO Q6H PRN PRN Reason: Nausea And Vomiting On examination: VITAL SIGNS: 97.7, 93, 18, 137/87, 96% on 2 L GENERAL APPEARANCE: BMI 12.9, sitting on bed awake HEENT: Normal external appearance of nose and ear. Oral cavity normal EYES: Pupils equal. Conjunctiva normal. NECK: JVD not raised. Mass not palpable. RESPIRATORY: Respiratory effort normal. Lungs decreased breath sounds CARDIOVASCULAR: First and second sounds normal. No edema. ABDOMEN: Soft. Liver and spleen not palpable. No tenderness. No mass palpable. PSYCHIATRY: Alert and oriented x3. Mood and affect normal. MUSCULAR skeletal: Muscle muscle mass. Bony prominences. INVESTIGATIONS, reviewed in the clinical context: White count 14.3 hemoglobin 13.2 platelets 189 potassium 3.7 BUN 9 creatinine 0.3 to Assessment and plan: -T4 25% compressed fracture, acute followed by kyphoplasty with biopsy Follow with Dr. Aguirre. Pain control -COPD in a previous smoker Symbicort -Anxiety not otherwise specified Xanax when necessary -Nausea secondary to pain medication Zofran/Compazine as needed -Severe protein calorie malnutrition Food supplements including ensure Increase activity as tolerated. Continue current medications. Activity as tolerated. Looking at possible rehab
[2022-07-02] MEDS: MORPHINE SULFATE 4 MG/ML SYRINGE IVP SCH ×6 (00:06→20:05)
[2022-07-02] MEDS: SODIUM CHLORIDE 0.9% 1,000 ML IV SCH ×2 (01:33→16:57)
[2022-07-02] MEDS: IPRATROPIUM 0.5 MG/2.5 ML NEBU INHALATION SCH ×4 (07:07→18:55)
[2022-07-02] MEDS: SYMBICORT 80-4.5 MCG INHALER INHALATION SCH ×2 (07:07→18:55)
[2022-07-02] MEDS: MORPHINE SULFATE ER 15 MG TABLET PO SCH ×2 (08:42→21:09)
--- NOTE | 2022-07-02 12:15 | P.PN ---
Progress Note - Text Progress Note Date: 07/02/22 Presenting complaint: T4 kyphoplasty Hospital course: I'm rounding for Dr. Johan Desouza This is a 71-year-old patient history of metastatic colon cancer presented with increasing pain in the upper T-spine. Found to have acute T4 fracture and has been having uncontrolled pain and has failed conservative measures. She underwent T4 kyphoplasty with biopsy by Dr. Aguirre on June 27. June 30: Patient having pain at the surgical site. Did eat her breakfast. Some nausea. Did manage to get to the bathroom. July 01: Pain at the operative site. Did eat some. Drinking ensure. Some shortness of breath. Activity encouraged. July 02: Pain is better at the operative site. Eating better. Has been out of bed. Awaiting placement. Active Medications Alprazolam (Alprazolam 0.25 Mg Tab) 0.25 mg PO BID PRN PRN Reason: Anxiety Last Admin: 06/29/22 21:15 Dose: 0.25 mg Budesonide/Formoterol Fumarate (Symbicort 80-4.5 Mcg Inhaler) 2 puff INHALATION RT-BID [facility] Last Admin: 07/02/22 07:07 Dose: 2 puff Dronabinol (Dronabinol 2.5 Mg Cap) 5 mg PO AC-BID [facility] Last Admin: 07/02/22 07:25 Dose: 5 mg Furosemide (Furosemide 20 Mg Tab) 20 mg PO DAILY PRN PRN Reason: Edema Sodium Chloride (Saline 0.9%) 1,000 mls @ 75 mls/hr IV .[id number] [facility] Last Admin: 07/02/22 01:33 Dose: Not Given Ipratropium [place] (Ipratropium 0.5 Mg/2.5 Ml Nebu) 0.5 mg INHALATION RT-QID [facility] Last Admin: 07/02/22 11:00 Dose: Not Given Morphine Sulfate (Morphine Sulfate Er 15 Mg Tablet) 15 mg PO Q12HR [facility]; Protocol Last Admin: 07/02/22 08:42 Dose: 15 mg Morphine Sulfate (Morphine Sulfate 4 Mg/Ml Syringe) 4 mg IVP Q4HR [facility] Last Admin: 07/02/22 07:25 Dose: 4 mg Ondansetron HCl (Ondansetron 4 Mg Tab) 4 mg PO Q6HR PRN PRN Reason: Nausea And Vomiting Last Admin: 06/30/22 21:54 Dose: 4 mg Oxycodone HCl (Oxycodone Hcl 5 Mg Tab) 15 mg PO Q4H PRN; Protocol PRN Reason: Breakthrough Pain Last Admin: 07/02/22 10:04 Dose: 15 mg Prochlorperazine Maleate (Prochlorperazine 10 Mg Tab) 10 mg PO Q6H PRN PRN Reason: Nausea And Vomiting On examination: VITAL SIGNS: 96.1, 82, 20, 143/84, 95% on 2 L GENERAL APPEARANCE: BMI 12.9, sitting up in bed awake HEENT: Normal external appearance of nose and ear. Oral cavity normal EYES: Pupils equal. Conjunctiva normal. NECK: JVD not raised. Mass not palpable. RESPIRATORY: Respiratory effort normal. Lungs decreased breath sounds CARDIOVASCULAR: First and second sounds normal. No edema. ABDOMEN: Soft. Liver and spleen not palpable. No tenderness. No mass palpable. PSYCHIATRY: Alert and oriented x3. Mood and affect normal. MUSCULAR skeletal: Muscle muscle mass. Bony prominences. INVESTIGATIONS, reviewed in the clinical context: White count 14.3 hemoglobin 13.2 platelets 189 potassium 3.7 BUN 9 creatinine 0.3 to Assessment and plan: -T4 25% compressed fracture, acute followed by kyphoplasty with biopsy Follow with Dr. Aguirre. Pain control -COPD in a previous smoker Symbicort -Anxiety not otherwise specified Xanax when necessary -Nausea secondary to pain medication: Better Zofran/Compazine as needed -Severe protein calorie malnutrition Food supplements including ensure activity as tolerated. Continue current medications. Possible rehab placement.
[2022-07-02] MEDS: SENNOSIDES-DOCUSATE SODIUM 1 EACH TAB PO SCH (20:06)
[2022-07-03] MEDS: MORPHINE SULFATE 4 MG/ML SYRINGE IVP SCH ×6 (00:21→20:15)
[2022-07-03] MEDS: SODIUM CHLORIDE 0.9% 1,000 ML IV SCH ×2 (04:17→19:18)
[2022-07-03] MEDS: IPRATROPIUM 0.5 MG/2.5 ML NEBU INHALATION SCH (07:39)
[2022-07-03] MEDS: SYMBICORT 80-4.5 MCG INHALER INHALATION SCH (07:39)
[2022-07-03] MEDS: MORPHINE SULFATE ER 15 MG TABLET PO SCH ×2 (07:52→20:14)
[2022-07-03] MEDS: ONDANSETRON 4 MG TAB PO PRN (08:00)
[2022-07-03] MEDS: ALPRAZolam 0.25 MG TAB PO PRN (08:16)
[2022-07-03] MEDS: BUDESONIDE 1 MG/2 ML NEBU INHALATION SCH ×2 (11:21→19:13)
[2022-07-03] MEDS: IPRATROPIUM-ALBUTEROL 3 ML NEB INHALATION SCH ×4 (11:21→23:12)
[2022-07-03] MEDS: FORMOTEROL FUMARATE 20 MCG/2 ML NEBU INHALATION SCH ×2 (11:22→19:13)
--- NOTE | 2022-07-03 18:35 | P.PN ---
Progress Note - Text Progress Note Date: 07/03/22 Presenting complaint: T4 kyphoplasty Hospital course: I'm rounding for Dr. Johan Desouza This is a 71-year-old patient history of metastatic colon cancer presented with increasing pain in the upper T-spine. Found to have acute T4 fracture and has been having uncontrolled pain and has failed conservative measures. She underwent T4 kyphoplasty with biopsy by Dr. Aguirre on June 27. June 30: Patient having pain at the surgical site. Did eat her breakfast. Some nausea. Did manage to get to the bathroom. July 01: Pain at the operative site. Did eat some. Drinking ensure. Some shortness of breath. Activity encouraged. July 02: Pain is better at the operative site. Eating better. Has been out of bed. Awaiting placement. July 03: Patient more short of breath and significant wheezing. Started on DuoNeb every 4, nebulized Pulmicort and Perforomist. Pulmicort consulted. Discussed with the patient. Active Medications Albuterol/Ipratropium (Ipratropium-Albuterol 3 Ml Neb) 3 ml INHALATION RT-Q4H [facility] Last Admin: 07/03/22 15:41 Dose: 3 ml Alprazolam (Alprazolam 0.25 Mg Tab) 0.25 mg PO BID PRN PRN Reason: Anxiety Last Admin: 07/03/22 08:16 Dose: 0.25 mg Budesonide (Budesonide 1 Mg/2 Ml Nebu) 1 mg INHALATION RT-BID [facility] Last Admin: 07/03/22 11:21 Dose: Not Given Dronabinol (Dronabinol 2.5 Mg Cap) 5 mg PO AC-BID [facility] Last Admin: 07/03/22 18:27 Dose: 5 mg Formoterol Fumarate (Formoterol Fumarate 20 Mcg/2 Ml Nebu) 20 mcg INHALATION RT-BID [facility] Last Admin: 07/03/22 11:22 Dose: Not Given Furosemide (Furosemide 20 Mg Tab) 20 mg PO DAILY PRN PRN Reason: Edema Sodium Chloride (Saline 0.9%) 1,000 mls @ 75 mls/hr IV .[id number] [facility] Last Admin: 07/03/22 04:17 Dose: 75 mls/hr Morphine Sulfate (Morphine Sulfate Er 15 Mg Tablet) 15 mg PO Q12HR [facility]; Protocol Last Admin: 07/03/22 07:52 Dose: 15 mg Morphine Sulfate (Morphine Sulfate 4 Mg/Ml Syringe) 4 mg IVP Q4HR [facility] Last Admin: 07/03/22 17:17 Dose: Not Given Ondansetron HCl (Ondansetron 4 Mg Tab) 4 mg PO Q6HR PRN PRN Reason: Nausea And Vomiting Last Admin: 07/03/22 08:00 Dose: 4 mg Oxycodone HCl (Oxycodone Hcl 5 Mg Tab) 15 mg PO Q4H PRN; Protocol PRN Reason: Breakthrough Pain Last Admin: 07/03/22 11:47 Dose: 15 mg Prochlorperazine Maleate (Prochlorperazine 10 Mg Tab) 10 mg PO Q6H PRN PRN Reason: Nausea And Vomiting Senna/Docusate Sodium (Sennosides-Docusate Sodium 1 Each Tab) 1 each PO HS [facility] Last Admin: 07/02/22 20:06 Dose: 1 each On examination: VITAL SIGNS: 97.4, 101, 16, 97/58, 97% on 2 L GENERAL APPEARANCE: BMI 12.9, sitting up in bed short of breath HEENT: Normal external appearance of nose and ear. Oral cavity normal EYES: Pupils equal. Conjunctiva normal. NECK: JVD not raised. Mass not palpable. RESPIRATORY: Respiratory effort increased. Lungs decreased breath sounds, expiratory wheezing CARDIOVASCULAR: First and second sounds normal. No edema. ABDOMEN: Soft. Liver and spleen not palpable. No tenderness. No mass palpable. PSYCHIATRY: Alert and oriented x3. Mood and affect anxious. MUSCULAR skeletal: Muscle muscle mass. Bony prominences. INVESTIGATIONS, reviewed in the clinical context: White count 14.3 hemoglobin 13.2 platelets 189 potassium 3.7 BUN 9 creatinine 0.3 to Assessment and plan: -T4 25% compressed fracture, acute followed by kyphoplasty with biopsy Follow with Dr. Aguirre. Pain control -Acute COPD exacerbation in a previous smoker: Uncontrolled Symbicort stop. Start DuoNeb every 4, Perforomist, nebulized Pulmicort, IV Solu-Medrol -Anxiety not otherwise specified Xanax when necessary -Nausea secondary to pain medication: Better Zofran/Compazine as needed -Severe protein calorie malnutrition Food supplements including ensure -Anorexia Marinol *DuoNeb, Perforomist, nebulized Pulmicort, IV Solu-Medrol. Patient reassured. Pulmonary consulted. Other medications to continue. Hold discharge
[2022-07-03] MEDS: SENNOSIDES-DOCUSATE SODIUM 1 EACH TAB PO SCH (20:14)
[2022-07-03] MEDS: methylPREDNISolone SOD SUCCI 40 MG/ML 1 ML VIAL IV SCH (20:15)
[2022-07-04] MEDS: MORPHINE SULFATE 4 MG/ML SYRINGE IVP SCH ×7 (00:04→23:07)
[2022-07-04] MEDS: methylPREDNISolone SOD SUCCI 40 MG/ML 1 ML VIAL IV SCH ×4 (00:04→22:56)
[2022-07-04] MEDS: IPRATROPIUM-ALBUTEROL 3 ML NEB INHALATION SCH ×5 (03:13→20:38)
[2022-07-04] MEDS: BUDESONIDE 1 MG/2 ML NEBU INHALATION SCH ×2 (07:24→20:38)
[2022-07-04] MEDS: FORMOTEROL FUMARATE 20 MCG/2 ML NEBU INHALATION SCH ×2 (07:24→20:38)
[2022-07-04] MEDS: MORPHINE SULFATE ER 15 MG TABLET PO SCH ×2 (08:19→22:50)
[2022-07-04] MEDS: SODIUM CHLORIDE 0.9% 1,000 ML IV SCH (08:25)
[2022-07-04] MEDS ORDERED: FUROSEMIDE 10 MG/ML 2 ML VIAL IV STA (08:31)
--- NOTE | 2022-07-04 08:46 | XR ---
EXAMINATION TYPE: XR chest 1V portable DATE OF EXAM: 07/04/2022 COMPARISON: CT chest 11/28/2017 HISTORY: Shortness of breath TECHNIQUE: Single frontal view of the chest is obtained. FINDINGS: There is a port in the right pectoral region, catheter courses via a jugular approach such that the distal tip is overlying the superior vena cava. Abnormal increased attenuation is present i n the right upper lobe, there is underlying emphysema. Blunting the costophrenic angles is present. A kerri is dense. Heart size is within normal limits. Bone mineralization is reduced. Oval calcification s are present at the level of the right shoulder. IMPRESSION: Abnormal attenuation present in the right upper lobe is indeterminate, correlate for pne umonia. Possible basilar effusions, there is underlying emphysema, there may be associated atelectasi s, edema. Follow-up is recommended.
[2022-07-04] MEDS ORDERED: LORazepam 2 MG/ML INJ IV ONE (09:41)
--- NOTE | 2022-07-04 10:22 | P.CNNES ---
History of Present Illness Consult date: 07/04/22 Requesting physician: Guy Tay Reason for Consult: orientation change History of Present Illness: This is a 71-year-old woman with metastatic colon cancer status post right colectomy 2017, chemotherapy presented to our facility because of increasing pain in the upper T-spine and found to have acute T4 fracture and as a result she underwent T4 kyphoplasty with biopsy on 06/27/2022. Neurology is consulted because of the change in orientation. Some of the history is obtained from medical record as well as the patient nurse. Per the patient's nurse is seems that the patient has been repeating the phrases and been confused and some other phrases is "what's next" or "oh my God". No seizure-like activity is noted by the nursing staff. Some of the workup during this facility consisted of: AST of 46 and ALT of 40 that slightly trending up. Sodium is 134. Calcium is 8.7 initially Review of Systems Review of system: The 12 point system was reviewed and apparent positive and negative per HPI. 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 HAS A PORT A CATH Past Anesthesia/Blood Transfusion Reactions: No Reported Reaction Past Psychological History: Anxiety Additional Psychological History / Comment(s): RELATED TO PAIN Smoking Status: Former smoker Past Alcohol Use History: None Reported Additional Past Alcohol Use History / Comment(s): STARTED SMOKING AT AGE 27 QUIT SMOKING 2018 SMOKED 1/2PPD Past Drug Use History: None Reported - Past Family History Mother Family Medical History: No Reported History Additional Family Medical History / Comment(s): cataracts Medications and Allergies Home Medications Medication Instructions Recorded Confirmed Type Prochlorperazine [Compazine] 1 tab PO DIRECTED PRN 04/25/21 06/23/22 History Morphine Sulfate ER [Ms Contin] 15 mg PO Q12HR 09/19/21 06/23/22 History ALPRAZolam [Xanax] 0.25 mg PO BID PRN 06/23/22 06/23/22 History Fluticasone/Umeclidin/Vilanter 1 inhalation INHALATION DIRECTED 06/23/22 06/23/22 History [Trelegy Ellipta 100-62.5-25] Furosemide [Lasix] 20 mg PO DAILY PRN 06/23/22 06/23/22 History Pregabalin [Lyrica] 150 mg PO BID #60 cap 06/27/22 Rx oxyCODONE-APAP 5-325MG [Percocet 1 tab PO Q4HR PRN #42 tab 06/27/22 Rx 5-325 mg] oxyCODONE HCL [oxyCODONE HCL (IR)] 15 mg PO Q4H PRN 06/28/22 06/28/22 History Allergies Allergy/AdvReac Type Severity Reaction Status Date / Time No Known Allergies Allergy Verified 06/23/22 11:03 Physical Examination - Vital Signs Vital Signs: Vital Signs Temp Pulse Pulse Resp BP BP Pulse Ox 07/04/22 07:52 100 07/04/22 07:41 100 07/04/22 07:39 100 07/04/22 07:25 96 07/04/22 06:56 97.9 F 89 17 118/76 94 L 07/04/22 03:24 104 H 07/04/22 03:13 100 07/04/22 02:00 98.1 F 96 17 131/74 97 07/03/22 19:32 99 07/03/22 19:21 99 07/03/22 19:20 99 07/03/22 19:13 96 07/03/22 18:54 98.7 F 104 H 18 107/65 94 L 07/03/22 15:56 96 07/03/22 15:41 100 07/03/22 14:00 97.4 F L 101 H 16 97/58 97 07/03/22 11:32 92 07/03/22 11:22 96 Intake and Output 07/03/22 07/04/22 07/04/22 22:59 06:59 14:59 Other: Voiding Method Toilet Toilet Toilet # Voids 0 1 # Bowel Movements 1 Weight 34.065 kg GENERAL: The patient is lying in bed and is not in acute distress. CHEST: The heart rate is regular rate rhythm. No murmurs to auscultation. LUNG: Clear to auscultation bilaterally no wheezing noted throughout. Not labored breathing. ABDOMEN/GI: Bowel sounds present in all 4 quadrants. No tenderness to palpation throughout. NEUROLOGICAL: Higher mental function: The patient is awake, alert, oriented to self, place. On the third try correctly stated the current month. Patient is following simple commands. No aphasia and no neglect. Cranial nerves: The pupils are round, equal and reactive to light and accommodation. Visual dooley are full to confrontation throughout. Extraocular movement is intact no nystagmus is noted. Facial sensation is normal to touch throughout. The facial strength is normal throughout. Hearing is normal bilaterally to hand rub. Tongue is midline and moved [id number] without any difficulty. No dysarthria is noted. Shoulder shrug is normal bilaterally. Motor: The strength is 5- throughout. Normal tone and bulk. Cerebellum: Normal finger to nose bilaterally. Sensation: Sensation is normal to touch throughout. Reflexes (right/left): 1+ throughout. Plantars are mute bilaterally. Results - Laboratory Findings CBC and BMP: 06/30/22 10:08 06/30/22 10:08 Abnormal Lab Findings: Abnormal Labs 06/28/22 06/28/22 06/30/22 17:43 17:43 10:08 WBC 12.8 H 14.3 H RDW 15.9 H 15.9 H Neutrophils # 10.7 H Neutrophils # (Manual) 12.87 H Lymphocytes # 0.6 L Lymphocytes # (Manual) 0.72 L Sodium 134 L Chloride 91 L Carbon Dioxide 35 H Creatinine 0.44 L Calcium Total Bilirubin AST 46 H ALT 40 H Alkaline Phosphatase 766 H Total Protein 6.0 L Albumin 3.3 L 06/30/22 10:08 WBC RDW Neutrophils # Neutrophils # (Manual) Lymphocytes # Lymphocytes # (Manual) Sodium 134 L Chloride Carbon Dioxide Creatinine 0.32 L Calcium 8.0 L Total Bilirubin 1.4 H AST 59 H ALT 52 H Alkaline Phosphatase 948 H Total Protein 5.7 L Albumin 3.1 L Assessment and Plan Assessment: Encephalopathy of unknown etiology. Rule out brain metastases especially with a history of stage 4 colon cancer. Another possibility is a medication effect in addition hospital stay causing delerium History of stage IV colon cancer status post right colectomy in 2017 and chemotherapy Acute fracture and underwent kyphoplasty with biopsy on 06/27/2022 Plan: I ordered MRI of the brain with and without, routine EEG. TSH, ammonia level, folate, vitamin B12. Orthopedic surgery team is on board Pulmonary team is consulted for COPD exacerbation. We'll defer the rest of the medical management to primary team The plan was discussed with the patient and his nurse. Thank you for consultation. Robert Witt M.D. Neuro-hospitalist Time with Patient: Greater than 30
--- NOTE | 2022-07-04 13:29 | P.CNPUL ---
History of Present Illness Consult date: 07/04/22 Requesting physician: Guy Tay Reason for consult: dyspnea, COPD Chief complaint: Back pain History of present illness: This is a 71-year-old female patient with a history of metastatic colon cancer with previous colectomy in 2017. She did undergo chemotherapy as well. She had developed increasing pain in her upper thoracic spine and had been seen by Dr. Aguirre. She was found to have an acute compression fracture of T4 and was electively admitted on 06/27/2022 appreciated undergone a T4 kyphoplasty with biopsy. She had been on the regular medical floor recovering when she developed increasing shortness of breath and we're consulted for the same. She is a former smoker known to have chronic obstructive pulmonary disease is maintained on Trelegy in the outpatient setting. Chest x-ray reveals underlying and was atelectatic changes in the bases versus congestive heart failure. She was given Lasix 20 mg IVP and IV fluids decreased to KVO. ProBNP level 3100. Ammonia le heraclio 14. She was seen today in consultation on the regular medical floor. She is currently sitting up in bed. Awake and alert in no acute distress. Maintaining O2 saturations in the 90s on 2 L/m per nasal cannula. Currently on Pulmicort and Perforomist inhalations, IV Solu-Medrol, DuoNeb inhalations. Review of Systems REVIEW OF SYSTEMS: CONSTITUTIONAL: Denies any recent significant weight loss or weight gain. EYES: Denies change in vision. EARS, NOSE, MOUTH, THROAT: Denies headaches, denies sore throat. CARDIOVASCULAR: Denies chest pain, palpitations or syncopal episodes. RESPIRATORY: Positive for shortness of breath, cough, congestion no hemoptysis. GASTROINTESTINAL: Denies change in appetite, denies abdominal pain GENITOURINARY: Denies hematuria, denies infections. MUSKULOSKELETAL: Positive for back pain. INTEGUMENTARY: Denies rash, denies eczema. NEUROLOGICAL: Denies recent memory loss, no recent seizure activity. PSYCHIATRIC: Denies anxiety, denies depression. HEMATOLOGIC/LYMPHATIC: Denies anemia, denies enlarged lymph nodes. 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 HAS A PORT A CATH Past Anesthesia/Blood Transfusion Reactions: No Reported Reaction Past Psychological History: Anxiety Additional Psychological History / Comment(s): RELATED TO PAIN Smoking Status: Former smoker Past Alcohol Use History: None Reported Additional Past Alcohol Use History / Comment(s): STARTED SMOKING AT AGE 27 QUIT SMOKING 2018 SMOKED 1/2PPD Past Drug Use History: None Reported - Past Family History Mother Family Medical History: No Reported History Additional Family Medical History / Comment(s): cataracts Medications and Allergies Home Medications Medication Instructions Recorded Confirmed Type Prochlorperazine [Compazine] 1 tab PO DIRECTED PRN 04/25/21 06/23/22 History Morphine Sulfate ER [Ms Contin] 15 mg PO Q12HR 09/19/21 06/23/22 History ALPRAZolam [Xanax] 0.25 mg PO BID PRN 06/23/22 06/23/22 History Fluticasone/Umeclidin/Vilanter 1 inhalation INHALATION DIRECTED 06/23/22 06/23/22 History [Trelegy Ellipta 100-62.5-25] Furosemide [Lasix] 20 mg PO DAILY PRN 06/23/22 06/23/22 History Pregabalin [Lyrica] 150 mg PO BID #60 cap 06/27/22 Rx oxyCODONE-APAP 5-325MG [Percocet 1 tab PO Q4HR PRN #42 tab 06/27/22 Rx 5-325 mg] oxyCODONE HCL [oxyCODONE HCL (IR)] 15 mg PO Q4H PRN 06/28/22 06/28/22 History Allergies Allergy/AdvReac Type Severity Reaction Status Date / Time No Known Allergies Allergy Verified 06/23/22 11:03 Physical Exam Vitals: Vital Signs Temp Pulse Pulse Resp BP BP BP 07/04/22 12:03 107 H 20 107/73 07/04/22 11:12 100 07/04/22 10:59 96 07/04/22 07:52 100 07/04/22 07:41 100 07/04/22 07:39 100 07/04/22 07:25 96 07/04/22 06:56 97.9 F 89 17 118/76 07/04/22 03:24 104 H 07/04/22 03:13 100 07/04/22 02:00 98.1 F 96 17 131/74 07/03/22 19:32 99 07/03/22 19:21 99 07/03/22 19:20 99 07/03/22 19:13 96 07/03/22 18:54 98.7 F 104 H 18 107/65 07/03/22 15:56 96 07/03/22 15:41 100 07/03/22 14:00 97.4 F L 101 H 16 97/58 Pulse Ox 07/04/22 12:03 97 07/04/22 11:12 07/04/22 10:59 07/04/22 07:52 07/04/22 07:41 07/04/22 07:39 07/04/22 07:25 07/04/22 06:56 94 L 07/04/22 03:24 07/04/22 03:13 07/04/22 02:00 97 07/03/22 19:32 07/03/22 19:21 07/03/22 19:20 07/03/22 19:13 07/03/22 18:54 94 L 07/03/22 15:56 07/03/22 15:41 07/03/22 14:00 97 Intake and Output 07/03/22 07/04/22 07/04/22 22:59 06:59 14:59 Other: Voiding Method Toilet Toilet Toilet # Voids 0 1 # Bowel Movements 1 Weight 34.065 kg GENERAL EXAM: Alert, pleasant 71-year-old female, appears older than stated age, on 2 L nasal cannula, comfortable in no apparent distress. HEAD: Normocephalic. EYES: Normal reaction of pupils, equal size. NOSE: Clear with pink turbinates. THROAT: No erythema or exudates. NECK: No masses, no JVD. CHEST: No chest wall deformity. LUNGS: Equal air entry with crackles in the bilateral bases CVS: S1 and S2 normal with no audible murmur, regular rhythm. ABDOMEN: No hepatosplenomegaly, normal bowel sounds, no guarding or rigidity. SPINE: No scoliosis or deformity SKIN: No rashes CENTRAL NERVOUS SYSTEM: No focal deficits, tone is normal in all 4 extremities. EXTREMITIES: There is no peripheral edema. No clubbing, no cyanosis. Peripheral pulses are intact. Results - Laboratory Findings CBC and BMP: 06/30/22 10:08 06/30/22 10:08 Abnormal lab findings: Abnormal Labs 06/28/22 06/28/22 06/30/22 17:43 17:43 10:08 WBC 12.8 H 14.3 H RDW 15.9 H 15.9 H Neutrophils # 10.7 H Neutrophils # (Manual) 12.87 H Lymphocytes # 0.6 L Lymphocytes # (Manual) 0.72 L Sodium 134 L Chloride 91 L Carbon Dioxide 35 H Creatinine 0.44 L Calcium Total Bilirubin AST 46 H ALT 40 H Alkaline Phosphatase 766 H Total Protein 6.0 L Albumin 3.3 L 06/30/22 10:08 WBC RDW Neutrophils # Neutrophils # (Manual) Lymphocytes # Lymphocytes # (Manual) Sodium 134 L Chloride Carbon Dioxide Creatinine 0.32 L Calcium 8.0 L Total Bilirubin 1.4 H AST 59 H ALT 52 H Alkaline Phosphatase 948 H Total Protein 5.7 L Albumin 3.1 L - Diagnostic Findings Chest x-ray: image reviewed Assessment and Plan Assessment: Thoracic back pain status post T4 kyphoplasty with biopsy for a acute compressive T4 fracture. Pathology negative for malignancy Acute exacerbation of chronic obstructive pulmonary disease Former smoker History of metastatic colon cancer Plan: The patient was seen and evaluated Lasix 20 mg IVP 1 Decrease IV fluids to KVO Obtain a proBNP Obtain a two-dimensional echocardiogram Follow-up chest x-ray in a.m. Continue DuoNeb inhalations, Pulmicort and Perforomist inhalations, IV solu Medrol We will continue to follow and make further recommendations based on her clinical status I have personally seen and examined the patient, performed the documentation and the assessment and plan as written. Number of minutes spent on the visit: 20.
--- NOTE | 2022-07-04 14:09 | MR ---
EXAMINATION TYPE: MR brain wo/w con DATE OF EXAM: 07/04/2022 12:36 PM COMPARISON: NONE HISTORY: Mets, AMS with hx of colon cancer CONTRAST: Patient received 3.5 mL intravenous Gadavist gadolinium contrast. Multiplanar and multispin-echo imaging of the brain was performed . Pre and post contrast enhanced i mages are obtained. The ventricles, basal cisterns and sulci overlying the cerebral convexities are mildly enlarged. There is evidence of mild to moderate periventricular white matter ischemic demyelination. Remote deep white matter insults are also noted. On diffusion weighted imaging there are scattered small foci of increased signal within the left cere bellum, periphery of the right cerebellum, right occipital lobe, posterior temporal lobe on the left, bilateral centrum semioval bilaterally, parietal occipital regions and bifrontal regions. No corresp onding pathologic enhancement is seen. Therefore the findings likely reflect embolic process. Correla te clinically. There is no evidence for midline shift or mass effect. Acute intracranial hemorrhage or extra-axial collection is not evident. No enhancing lesions are seen. The paranasal sinuses and mastoid air cells are well-aerated. IMPRESSION: 1. Numerous tiny foci of increased signal on diffusion-weighted imaging as discussed above without en hancing lesions. Correlate for embolic process. 2. Age-related atrophic and chronic small vessel ischemic change.
[2022-07-04] MEDS ORDERED: NALOXONE 0.4 MG/ML 1 ML VIAL IVP STA (17:26)
[2022-07-04 20:39] LABS: Vitamin B12 >2000.0 pg/mL (200.0-944.0)
[2022-07-04] MEDS: SENNOSIDES-DOCUSATE SODIUM 1 EACH TAB PO SCH (20:58)
[2022-07-04] MEDS ORDERED: IPRATROPIUM-ALBUTEROL 3 ML NEB INHALATION STA (23:37)
[2022-07-05] MEDS ORDERED: SCOPOLAMINE 1 MG/72 HR PATCH TRANSDERM SCH (00:30)
--- NOTE | 2022-07-05 00:51 | EEG ---
ELECTROENCEPHALOGRAM REPORT CLINICAL HISTORY: This is a 71-year-old woman with history of stage IV colon cancer, who has altered mental status. The video EEG is obtained to evaluate for seizure epileptiform activity. RELEVANT MEDICATION: Ativan 1 mg. EEG TYPE: A routine 21-channel EEG is performed with video using the 10/20 electrode placement system. DESCRIPTION: Background consists of diffuse, nonrhythmic 1.5 to 2.5 delta activity and at times intermixed with theta activity. Otherwise, there is no physiological stage 2 sleep architecture. There is no focal slowing. There is excess beta activity seen. Interictal and ictal is none. ACTIVATION PROCEDURES: Photic stimulation and hyperventilation are not performed. CLINICAL INTERPRETATION: This is an abnormal routine EEG. The background slowing is suggestive of severe encephalopathy. The excessive beta activity is likely due to medication effect (Ativan). Otherwise, there is no focal slowing, epileptiform discharge, or seizure on the EEG. Clinical correlation is recommended. MMMARBELLA / IJN: [id number] / MTDD
[2022-07-05] MEDS: ENOXAPARIN 40 MG/0.4 ML SYRINGE SQ SCH ×2 (01:00→08:10)
--- NOTE | 2022-07-05 01:10 | CT ---
EXAMINATION TYPE: CT chest wo con DATE OF EXAM: 07/05/2022 COMPARISON: 11/28/2017 HISTORY: EFFUSION, INCREASED GLORIA/LABORED BREATHING, H/O COLON CA W/ METS TO LIVER & LUNGS CT DLP: 328 mGycm Automated exposure control for dose reduction was used. Images obtained from the thoracic inlet to the diaphragm with no contrast. Thoracic aorta is atheromatous. No mediastinal adenopathy. There are no hilar masses. There is extens bridget airspace patchy consolidation in the right upper lobe. There is pulmonary emphysema. There are bi lateral pleural effusions. There is normal heart size. There is some reticular nodular infiltrates in the periphery of both lungs. There is T12 anterior wedging 30%. There is T4 anterior wedging almost 50%. There is T4 vertebroplast y. Exam limited by motion. There are hypodensities in the liver that measure up to 3 cm. IMPRESSION: There is extensive right upper lobe pneumonia which is new compared to old exam. There is old T12 com pression fracture. T4 fracture is a change compared to old exam. Bilateral pleural effusions are new. Bilateral peripheral reticular nodular pulmonary infiltrates are new compared to old exam. Hypodensi ties in the liver suggestive of metastatic disease appear new compared to old CT scan.
[2022-07-05] MEDS ORDERED: VANCOMYCIN IV PER PHARMACY 1 EACH MISC MISCELLANE PRN (01:28)
[2022-07-05] MEDS ORDERED: VANCOMYCIN 750 MG in SODIUM CHLORIDE 0.9% 250 ML IVPB ONE (02:00)
[2022-07-05 02:19] LABS: INR 1.3 (<1.2); Prothrombin Time 13.8 sec (9.0-12.0)
[2022-07-05 02:43] LABS: ALT 38 U/L (4-34); AST 30 U/L (14-36); African American GFR (CKD) >90 (>60 ml/min/1.73 sqM); Albumin 2.7 g/dL (3.5-5.0); Albumin/Globulin Ratio 1.1; Alkaline Phosphatase 728 U/L (38-126); Anion Gap 11 mmol/L; Blood Urea Nitrogen 17 mg/dL (7-17); Calcium 8.6 mg/dL (8.4-10.2); Carbon Dioxide 26 mmol/L (22-30); Chloride 102 mmol/L (98-107); Globulin 2.5 g/dL; Glucose 128 mg/dL (74-99); Non-African American GFR(CKD) >90 (>60 ml/min/1.73 sqM); Potassium 3.5 mmol/L (3.5-5.1); Sodium 139 mmol/L (137-145); Total Bilirubin 1.2 mg/dL (0.2-1.3); Total Protein 5.2 g/dL (6.3-8.2)
[2022-07-05 03:41] LABS: Anisocytosis Slight; HCT 36.2 % (34.0-46.0); HGB 11.3 gm/dL (11.4-16.0); MCH 31.6 pg (25.0-35.0); MCHC 31.3 g/dL (31.0-37.0); Macrocytosis Moderate; Mean Platelet Volume 9.1; Platelet Count 160 k/uL (150-450); RBC 3.59 m/uL (3.80-5.40); RDW 17.3 % (11.5-15.5); WBC 17.5 k/uL (3.8-10.6)
[2022-07-05 04:35] LABS: Nucleated Red Blood Cells 0 /100 WBC (0-0)
[2022-07-05 04:38] LABS: Band Neutrophils % 30 %; Lymphocytes # (M) 0.53 k/uL (1.0-4.8); Monocytes # (M) 1.05 k/uL (0-1.0); Neutrophils % (M) 62 %; Total Cells Counted 200
[2022-07-05 04:40] LABS: Poikilocytosis (M) Present; RBC Fragments Present
[2022-07-05] MEDS: CEFEPIME 2 GM in SODIUM CHLORIDE 0.9% 100 ML IVPB SCH ×2 (05:06→10:48)
[2022-07-05] MEDS: SODIUM CHLORIDE 0.9% 1,000 ML IV SCH (05:06)
[2022-07-05] MEDS ORDERED: FUROSEMIDE 10 MG/ML 2 ML VIAL IV STA (07:55)
[2022-07-05] MEDS: methylPREDNISolone SOD SUCCI 40 MG/ML 1 ML VIAL IV SCH (08:10)
[2022-07-05] MEDS: FORMOTEROL FUMARATE 20 MCG/2 ML NEBU INHALATION SCH (08:14)
[2022-07-05] MEDS: IPRATROPIUM-ALBUTEROL 3 ML NEB INHALATION SCH ×2 (08:14→11:47)
[2022-07-05] MEDS: BUDESONIDE 1 MG/2 ML NEBU INHALATION SCH (08:14)
[2022-07-05 08:50] VITALS: RESP 22
[2022-07-05] MEDS: MORPHINE SULFATE 2 MG/ML SYRINGE IVP PRN ×2 (09:10→12:25)
--- NOTE | 2022-07-05 09:50 | P.CRDCN ---
History of Present Illness Consult date: 07/05/22 History of present illness: HISTORY OF PRESENT ILLNESS: This is a 71 year old female with a past medical history significant for mild to moderate nonobstructive coronary artery disease, metastatic colon cancer, cardiomyopathy, and hyperlipidemia . Patient follows in the office with Dr. Snow. We have been asked to see the patient in consultation for CVA. Patient examined at the bedside. Patient underwent T4 kyphoplasty and biopsy secondary to acute T4 fracture. The patient was found to have altered mental status postoperatively. She underwent an MRI of the brain yesterday revealing numerous tiny foci of increased signal on diffuse weighted imaging without enhancing lesions. Correlate for embolic process. This morning the patient appears to be in acute distress. She is somewhat able to communicate. She reports SOB. She is tachycardic and having tachypnea. Telemetry reveals sinus tachycardia with no signs of atrial fibrillation noted. * EKG reveals sinus tachycardia * Chest xray abnormal attenuation present on the right upper lobe, correlate for pneumonia. Possible basilar effusions, there is underlying emphysema, there may be associated atelectasis or edema. * Laboratory data: WBC 17.5. Hemoglobin 11.3. Platelet count 160. Sodium 139. Potassium 3.5. BUN 17. Creatinine 0.35. * Current home cardiac medications include Lasix 20 mg daily as needed * Most recent echocardiogram per office records reveal echocardiogram completed with an ejection fraction around 35%. Previous echocardiogram obtained in September 2021 revealed ejection fraction 50%, [id number] mitral regurgitation, mild tricuspid regurgitation * Patient underwent Lexiscan stress test in April 2020 which was negative for ischemia * Per office records, patient underwent cardiac catheterization in March 2022 revealing mild to moderate nonobstructive CAD REVIEW OF SYSTEMS: At the time of my exam: Unable to complete thorough examination secondary to altered mental status and patient condition PHYSICAL EXAM: VITAL SIGNS: Reviewed. GENERAL: Well-developed in mild distress. Cachectic HEENT: Head is normocephalic. Pupils are equal, round. Sclerae anicteric. Mucous membranes of the mouth are moist. Neck supple. No JVD or thyromegaly LUNGS: Tachypnea present. Respirations even and unlabored. Lungs with crackles and rhonchi present. HEART: Trachycardic. Regular rate and rhythm. S1 and S2 heard. + systolic murmur. ABDOMEN: Soft. Nondistended. Nontender. EXTREMITIES: Normal range of motion. No clubbing or cyanosis. Peripheral pulses intact. No lower extremity edema NEUROLOGIC: Lethargic ASSESSMENT: Acute T4 fracture, status post kyphoplasty Acute encephalopathy Possible bilateral CVA, neurology following Sinus tachycardia Acute hypoxic respiratory failure Acute on chronic heart failure with reduced ejection fraction Syru-ex-sdldpdub nonobstructive CAD Metastatic colon cancer COPD History of nonischemic cardiac myopathy Hyperlipidemia PLAN: Obtain 2D echo to assess cardiac structure and function Continue telemetry monitoring Begin Lasix 20mg IV BID Patient is currently not a candidate for invasive testing or procedures due to her current condition and comorbidities Patient's prognosis remains extremely poor. Recommending comfort care Nurse practitioner note has been reviewed by physician. Signing provider agrees with the documented findings, assessment, and plan of care. 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 HAS A PORT A CATH Past Anesthesia/Blood Transfusion Reactions: No Reported Reaction Past Psychological History: Anxiety Additional Psychological History / Comment(s): RELATED TO PAIN Smoking Status: Former smoker Past Alcohol Use History: None Reported Additional Past Alcohol Use History / Comment(s): STARTED SMOKING AT AGE 27 QUIT SMOKING 2018 SMOKED 1/2PPD Past Drug Use History: None Reported - Past Family History Mother Family Medical History: No Reported History Additional Family Medical History / Comment(s): cataracts Medications and Allergies Home Medications Medication Instructions Recorded Confirmed Type Prochlorperazine [Compazine] 1 tab PO DIRECTED PRN 04/25/21 06/23/22 History Morphine Sulfate ER [Ms Contin] 15 mg PO Q12HR 09/19/21 06/23/22 History ALPRAZolam [Xanax] 0.25 mg PO BID PRN 06/23/22 06/23/22 History Fluticasone/Umeclidin/Vilanter 1 inhalation INHALATION DIRECTED 06/23/22 06/23/22 History [Trelegy Ellipta 100-62.5-25] Furosemide [Lasix] 20 mg PO DAILY PRN 06/23/22 06/23/22 History Pregabalin [Lyrica] 150 mg PO BID #60 cap 06/27/22 Rx oxyCODONE-APAP 5-325MG [Percocet 1 tab PO Q4HR PRN #42 tab 06/27/22 Rx 5-325 mg] oxyCODONE HCL [oxyCODONE HCL (IR)] 15 mg PO Q4H PRN 06/28/22 06/28/22 History Allergies Allergy/AdvReac Type Severity Reaction Status Date / Time No Known Allergies Allergy Verified 06/23/22 11:03 Physical Exam Vitals: Vital Signs Temp Pulse Pulse Resp BP BP BP 07/05/22 08:38 116 H 07/05/22 08:31 116 H 07/05/22 08:30 116 H 07/05/22 08:14 112 H 07/05/22 08:00 99.2 F 114 H 22 153/88 07/05/22 01:04 98.3 F 124 H 18 108/66 07/05/22 00:21 114 H 07/05/22 00:09 115 H 07/04/22 20:52 111 H 07/04/22 20:46 110 H 07/04/22 20:38 112 H 07/04/22 20:04 98.6 F 109 H 18 112/65 07/04/22 17:45 104 H 16 121/77 07/04/22 17:40 104 H 16 121/77 07/04/22 16:02 96 07/04/22 15:48 104 H 07/04/22 12:03 107 H 20 107/73 07/04/22 11:12 100 07/04/22 10:59 96 Pulse Ox 07/05/22 08:38 07/05/22 08:31 07/05/22 08:30 07/05/22 08:14 07/05/22 08:00 98 07/05/22 01:04 95 07/05/22 00:21 07/05/22 00:09 07/04/22 20:52 07/04/22 20:46 07/04/22 20:38 92 L 07/04/22 20:04 93 L 07/04/22 17:45 98 07/04/22 17:40 98 07/04/22 16:02 07/04/22 15:48 07/04/22 12:03 97 07/04/22 11:12 07/04/22 10:59 Intake and Output 07/04/22 07/05/22 07/05/22 22:59 06:59 14:59 Other: Voiding Method Diaper # Voids 0 1 Results 07/05/22 02:14 07/05/22 02:14 Cardiac Enzymes 07/05/22 Range/Units 02:14 AST 30 (14-36) U/L Coagulation 07/05/22 Range/Units 01:20 PT 13.8 H (9.0-12.0) sec CBC 07/05/22 Range/Units 02:14 WBC 17.5 H (3.8-10.6) k/uL RBC 3.59 L (3.80-5.40) m/uL Hgb 11.3 L (11.4-16.0) gm/dL Hct 36.2 (34.0-46.0) % Plt Count 160 (150-450) k/uL Comprehensive Metabolic Panel 07/05/22 Range/Units 02:14 Sodium 139 (137-145) mmol/L Potassium 3.5 (3.5-5.1) mmol/L Chloride 102 (98-107) mmol/L Carbon Dioxide 26 (22-30) mmol/L BUN 17 (7-17) mg/dL Creatinine 0.35 L (0.52-1.04) mg/dL Glucose 128 H (74-99) mg/dL Calcium 8.6 (8.4-10.2) mg/dL AST 30 (14-36) U/L ALT 38 H (4-34) U/L Alkaline Phosphatase 728 H (38-126) U/L Total Protein 5.2 L (6.3-8.2) g/dL Albumin 2.7 L (3.5-5.0) g/dL Current Medications Generic Name Dose Route Start Last Admin Trade Name Freq PRN Reason Stop Dose Admin Albuterol/Ipratropium 3 ml 07/04/22 12:00 07/05/22 08:14 Ipratropium-Albuterol 3 Ml Neb INHALATION 3 ml RT-QID SANDEEP Administration Alprazolam 0.25 mg 06/27/22 21:17 07/03/22 08:16 Alprazolam 0.25 Mg Tab PO 0.25 mg BID PRN Administration Anxiety Budesonide 1 mg 07/03/22 08:39 07/05/22 08:14 Budesonide 1 Mg/2 Ml Nebu INHALATION 1 mg RT-BID SANDEEP Administration Dronabinol 5 mg 06/29/22 23:45 07/04/22 15:57 Dronabinol 2.5 Mg Cap PO Not Given AC-BID SANDEEP Enoxaparin Sodium 40 mg 07/04/22 23:45 07/05/22 08:10 Enoxaparin 40 Mg/0.4 Ml Syringe SQ 40 mg DAILY SANDEEP Administration Formoterol Fumarate 20 mcg 07/03/22 08:39 07/05/22 08:14 Formoterol Fumarate 20 Mcg/2 Ml Nebu INHALATION 20 mcg RT-BID SANDEEP Administration Furosemide 20 mg 06/27/22 21:17 Furosemide 20 Mg Tab PO DAILY PRN Edema Furosemide 20 mg 07/05/22 21:00 Furosemide 10 Mg/Ml 4 Ml Vial IV Q12HR [facility] Sodium Chloride 1,000 mls @ 20 mls/hr 06/28/22 17:15 07/05/22 05:06 Saline 0.9% IV 20 mls/hr .Q24H SANDEEP Administration Cefepime HCl 2 gm/ Sodium 100 mls @ 25 mls/hr 07/05/22 02:00 07/05/22 05:06 Chloride IVPB 25 mls/hr Q8H SANDEEP Administration Protocol Vancomycin HCl 750 mg/ Sodium 250 mls @ 125 mls/hr 07/05/22 15:00 Chloride IVPB Q12H [facility] Methylprednisolone Sodium Succinate 40 mg 07/03/22 18:45 07/05/22 08:10 Methylprednisolone Sod Succi 40 Mg/Ml 1 Ml Vial IV 40 mg Q8HR SANDEEP Administration Morphine Sulfate 15 mg 06/27/22 21:30 07/04/22 22:50 Morphine Sulfate Er 15 Mg Tablet PO Not Given Q12HR [facility] Protocol Morphine Sulfate 2 mg 07/05/22 08:53 07/05/22 09:10 Morphine Sulfate 2 Mg/Ml Syringe IVP 2 mg Q4HR PRN Administration Pain/Discomfort Ondansetron HCl 4 mg 06/28/22 18:35 07/03/22 08:00 Ondansetron 4 Mg Tab PO 4 mg Q6HR PRN Administration Nausea And Vomiting Scopolamine 1 patch 07/05/22 00:30 07/05/22 00:59 Scopolamine 1 Mg/72 Hr Patch TRANSDERM 1 patch Q72H SANDEEP Administration Senna/Docusate Sodium 1 each 07/02/22 21:00 07/04/22 20:58 Sennosides-Docusate Sodium 1 Each Tab PO Not Given HS SANDEEP Intake and Output 07/04/22 07/05/22 07/05/22 22:59 06:59 14:59 Other: Voiding Method Diaper # Voids 0 1 07/05/22 02:14 07/05/22 02:14
--- NOTE | 2022-07-05 09:56 | CA ---
Transthoracic Echo Report Name: Dariana Richards Age: 71 Gender: F : 1950 Exam Date: 07/05/2022 08:17 Exam Location: [place] [facility] Ht (in): Wt (lb): Ordering Physician: Johan Desouza MD Attending/Referring Phys: Professor Of English Gely Ramos RDCS Procedure CPT: Indications: chf/embolism Cardiac Hx: PT is terminal CA in pain. Technical Quality: Very technically difficult study Contrast 1: Total Dose (mL): Contrast 2: Total Dose (mL): MEASUREMENTS (Male / Female) Normal Values FINDINGS Left Ventricle Left ventricular ejection fraction is estimated at 50-55%. Right Ventricle Right ventricle not well visualized. Right Atrium Normal right atrial size. Left Atrium Normal left atrial size. Mitral Valve Structurally normal mitral valve. Aortic Valve Trileaflet aortic valve. Tricuspid Valve Structurally normal tricuspid valve. Pulmonic Valve Pericardium Aorta CONCLUSIONS Normal left ventricular dimension and systolic function Previewed by: Dr. Fady Snow MD (Electronically Signed) Final Date: 05 July 2022 09:56
[2022-07-05] MEDS: MORPHINE SULFATE ER 15 MG TABLET PO SCH (10:47)
--- NOTE | 2022-07-05 11:56 | P.PN ---
Subjective Progress Note Date: 07/05/22 The patient is seen at bedside and per nurse she looks more lethargic. She is tachypneic. MRI showed multiple small foci of stroke over bilateral hemisphere. Patient did not receive IV TPA since outside the window and the risk outweigh the benefit. Objective - Vital Signs Vital signs: Vital Signs Temp 99.2 F 07/05/22 08:00 Pulse 116 H 07/05/22 08:38 Resp 22 07/05/22 08:00 BP 153/88 07/05/22 08:00 Pulse Ox 98 07/05/22 08:00 FiO2 21 06/29/22 07:35 Intake & Output 07/04/22 07/05/22 07/05/22 18:59 06:59 18:59 Weight 34.065 kg Other: Voiding Method Toilet Diaper # Voids 0 1 - Exam GENERAL: The patient is lying in bed and looks more lethargic and appears tachypneic. LUNG: Is tachypneic. NEUROLOGICAL: Limited because of her condition. Higher mental function: The patient is severely drowsy but is briefly awakeable and oriented to self. She is having difficulty following commands because of her drowsiness and respiratory condition. Cranial nerves: The pupils are round, equal and reactive to light. The facial strength is mild left nasolabial flattening. Hypophonia. Motor: Difficulty to assess and seemed decreased tone throughout. SOME OF THE WORK-UP DURING THIS HOSPITAL VISIT CONSISTED OF: MRI the brain with and without is reported as numerous tiny foci of increased signal on diffusion-weighted image without enhancing lesion. Correlate for embolic process. Age-related atrophy and chronic small vessel disease. The di ffusion weighted image seen scattered in their small and it's in the left cerebellum, right cerebellum, bioccipital, and the temporal region on the left, bilateral; valve, parietal occipital region and by frontal region. I personally reviewed MRI and agree with the report. 2-D echo was reported as normal left ventricular dye mention systolic function. Normal left atrial size. TSH is a 0.164 and a free T4 is 1.230 Vitamin B12 is more than 2000 Folate is 12.5 - Labs CBC & Chem 7: 07/05/22 02:14 07/05/22 02:14 Labs: Abnormal Lab Results - Last 24 Hours (Table) 07/04/22 07/05/22 07/05/22 Range/Units 11:15 01:20 01:20 WBC (3.8-10.6) k/uL RBC (3.80-5.40) m/uL Hgb (11.4-16.0) gm/dL MCV (80.0-100.0) fL RDW (11.5-15.5) % Neutrophils # (Manual) (1.3-7.7) k/uL Lymphocytes # (Manual) (1.0-4.8) k/uL Monocytes # (Manual) (0-1.0) k/uL PT 13.8 H (9.0-12.0) sec INR 1.3 H (<1.2) Creatinine (0.52-1.04) mg/dL Glucose (74-99) mg/dL ALT (4-34) U/L Alkaline Phosphatase (38-126) U/L Total Protein (6.3-8.2) g/dL Albumin (3.5-5.0) g/dL Vitamin B12 >2000.0 H (200.0-944.0) pg/mL Procalcitonin 0.83 H (0.02-0.09) ng/mL TSH 0.164 L (0.465-4.680) mIU/L 07/05/22 07/05/22 Range/Units 02:14 02:14 WBC 17.5 H (3.8-10.6) k/uL RBC 3.59 L (3.80-5.40) m/uL Hgb 11.3 L (11.4-16.0) gm/dL MCV 101.0 H (80.0-100.0) fL RDW 17.3 H (11.5-15.5) % Neutrophils # (Manual) 16.10 H (1.3-7.7) k/uL Lymphocytes # (Manual) 0.53 L (1.0-4.8) k/uL Monocytes # (Manual) 1.05 H (0-1.0) k/uL PT (9.0-12.0) sec INR (<1.2) Creatinine 0.35 L (0.52-1.04) mg/dL Glucose 128 H (74-99) mg/dL ALT 38 H (4-34) U/L Alkaline Phosphatase 728 H (38-126) U/L Total Protein 5.2 L (6.3-8.2) g/dL Albumin 2.7 L (3.5-5.0) g/dL Vitamin B12 (200.0-944.0) pg/mL Procalcitonin (0.02-0.09) ng/mL TSH (0.465-4.680) mIU/L Assessment and Plan Assessment: Acute ischemic stroke and patient has embolic phenomenon over bilateral hemispheric. Rule out cardiogenic. No brain mets. Encephalopathy due to multifactorial: Respiratory distress as well as acute ischemic stroke and medication effect (Morphine) History of stage IV colon cancer status post right colectomy in 2017 and chemotherapy Acute fracture and underwent kyphoplasty with biopsy on 06/27/2022 Plan: Recommend aspirin 81 mg daily if no contraidcation especially with her stage 4 cancer and recommend Lipitor 10 mg daily at bedtime for secondary stroke prophylaxis. Her overall condition appears poor and I recommend hospice or comfort care from a neurologic perspective. If the family wishes to pursue then can obtain carotid duplex, lipid panel. I personally spoke with and we agreement that patient is not stable for CHARLIE and again he overall condition is poor. PT and OT are consulted. 24 hour neuro checks Orthopedic surgery team is on board Pulmonary team is consulted for COPD exacerbation. We'll defer the rest of the medical management to primary team For DVT prophylaxis use SCD or subcu heparin or Lovenox. The plan was discussed with the cardiology team and patient's nurse. Patient condition is poor. Robert Witt M.D. Neuro-hospitalist Time with Patient: Less than 30
[2022-07-05 13:27] VITALS: BP 126/78; PULSE 101; TEMP 99.1
--- NOTE | 2022-07-05 13:30 | PN ---
PROGRESS NOTE SUBJECTIVE: Poor nutrition. No appetite. Minimal eating and drinking. Dietary consulted. MRI of the brain shows multiple areas of possible embolic CVA. Echo. Cardiology consult. Elevated BNP . ASSESSMENT: Altered mental status secondary to embolic cerebrovascular accidents, unclear etiology. Colon cancer with metastases, chronic obstructive pulmonary disease, malnutrition. Prognosis extremely guarded. Given DuoNeb. Give her some fluids. Check her electrolytes. Prognosis guarded. MMODL / IJN: [id number] /
--- NOTE | 2022-07-05 13:42 | P.PN ---
Subjective Progress Note Date: 07/05/22 This is a 71-year-old female patient with a history of metastatic colon cancer with previous colectomy in 2017. She did undergo chemotherapy as well. She had developed increasing pain in her upper thoracic spine and had been seen by Dr. Aguirre. She was found to have an acute compression fracture of T4 and was electively admitted on 06/27/2022 appreciated undergone a T4 kyphoplasty with biopsy. She had been on the regular medical floor recovering when she developed increasing shortness of breath and we're consulted for the same. She is a former smoker known to have chronic obstructive pulmonary disease is maintained on Trelegy in the outpatient setting. Chest x-ray reveals underlying and was atelectatic changes in the bases versus congestive heart failure. She was given Lasix 20 mg IVP and IV fluids decreased to KVO. ProBNP level 3100. Ammonia level 14. She was seen today in consultation on the regular medical floor. She is currently sitting up in bed. Awake and alert in no acute distress. Maintaining O2 saturations in the 90s on 2 L/m per nasal cannula. Currently on Pulmicort and Perforomist inhalations, IV Solu-Medrol, DuoNeb inhalations. The patient is seen today 07/05/2022 in follow-up on the regular medical floor. She is currently resting in bed. She is awake and alert. She is still complaining of back pain. She has some shortness of breath. She has scattered rhonchi and wheezing. She is maintaining O2 saturations in the 90s on 4 L/m per nasal cannula. CAT scan revealed extensive right upper lobe pneumonia which is new compared to previous. There is old T12 compression fracture. T4 fracture is a change compared to old exam. Bilateral pleural effusions are new. Bilateral peripheral reticular nodular pulmonary infiltrates are new. Hypodensities in the liver suggestive of metastatic disease appear new compared to old CT of 11/28/2017. Echocardiogram received revealed preserved left ventricular systolic function with ejection fraction 50-55%. No significant valvular abnormalities. White count 17.5. Hemoglobin 11.3. Sodium 139. Potassium 3.5. BUN 17. Creatinine 0.35. Glucose 128. AST 30. ALT 38. She is continued on DuoNeb inhalations, Pulmicort and Perforomist inhalations, IV Solu-Medrol. Antibiotics in the form of vancomycin and cefepime. IV diuretics. Objective - Vital Signs Vital signs: Vital Signs Temp 99.2 F 07/05/22 08:00 Pulse 116 H 07/05/22 08:38 Resp 22 07/05/22 08:00 BP 153/88 07/05/22 08:00 Pulse Ox 98 07/05/22 08:00 FiO2 21 06/29/22 07:35 Intake & Output 07/04/22 07/05/22 07/05/22 18:59 06:59 18:59 Intake Total 0 Balance 0 Weight 34.065 kg Intake: Oral 0 Other: Voiding Method Toilet Diaper Diaper # Voids 0 1 - Exam GENERAL EXAM: Alert, pleasant 71-year-old female, appears older than stated age, on 4 L nasal cannula, comfortable in no apparent distress. HEAD: Normocephalic. EYES: Normal reaction of pupils, equal size. NOSE: Clear with pink turbinates. THROAT: No erythema or exudates. NECK: No masses, no JVD. CHEST: No chest wall deformity. LUNGS: Equal air entry with crackles in the bilateral bases CVS: S1 and S2 normal with no audible murmur, regular rhythm. ABDOMEN: No hepatosplenomegaly, normal bowel sounds, no guarding or rigidity. SPINE: No scoliosis or deformity SKIN: No rashes CENTRAL NERVOUS SYSTEM: No focal deficits, tone is normal in all 4 extremities. EXTREMITIES: There is no peripheral edema. No clubbing, no cyanosis. Peripheral pulses are intact. - Labs CBC & Chem 7: 07/05/22 02:14 07/05/22 02:14 Labs: Abnormal Lab Results - Last 24 Hours (Table) 07/04/22 07/05/22 07/05/22 Range/Units 11:15 01:20 01:20 WBC (3.8-10.6) k/uL RBC (3.80-5.40) m/uL Hgb (11.4-16.0) gm/dL MCV (80.0-100.0) fL RDW (11.5-15.5) % Neutrophils # (Manual) (1.3-7.7) k/uL Lymphocytes # (Manual) (1.0-4.8) k/uL Monocytes # (Manual) (0-1.0) k/uL PT 13.8 H (9.0-12.0) sec INR 1.3 H (<1.2) Creatinine (0.52-1.04) mg/dL Glucose (74-99) mg/dL ALT (4-34) U/L Alkaline Phosphatase (38-126) U/L Total Protein (6.3-8.2) g/dL Albumin (3.5-5.0) g/dL Vitamin B12 >2000.0 H (200.0-944.0) pg/mL Procalcitonin 0.83 H (0.02-0.09) ng/mL TSH 0.164 L (0.465-4.680) mIU/L 07/05/22 07/05/22 Range/Units 02:14 02:14 WBC 17.5 H (3.8-10.6) k/uL RBC 3.59 L (3.80-5.40) m/uL Hgb 11.3 L (11.4-16.0) gm/dL MCV 101.0 H (80.0-100.0) fL RDW 17.3 H (11.5-15.5) % Neutrophils # (Manual) 16.10 H (1.3-7.7) k/uL Lymphocytes # (Manual) 0.53 L (1.0-4.8) k/uL Monocytes # (Manual) 1.05 H (0-1.0) k/uL PT (9.0-12.0) sec INR (<1.2) Creatinine 0.35 L (0.52-1.04) mg/dL Glucose 128 H (74-99) mg/dL ALT 38 H (4-34) U/L Alkaline Phosphatase 728 H (38-126) U/L Total Protein 5.2 L (6.3-8.2) g/dL Albumin 2.7 L (3.5-5.0) g/dL Vitamin B12 (200.0-944.0) pg/mL Procalcitonin (0.02-0.09) ng/mL TSH (0.465-4.680) mIU/L Assessment and Plan Assessment: Thoracic back pain status post T4 kyphoplasty with biopsy for a acute compressive T4 fracture. Pathology negative for malignancy Acute exacerbation of chronic obstructive pulmonary disease Former smoker History of metastatic colon cancer with liver and lung involvement Plan: The patient was seen and evaluated Computed tomography scan, medications and labs reviewed Her overall prognosis is quite poor She is a DO NOT RESUSCITATE/DO NOT INTUBATE CODE STATUS Patient remains in quite a bit of pain May require comfort care/hospice I have personally seen and examined the patient, performed the documentation and the assessment and plan as written. Number of minutes spent on the visit: 10.
[2022-07-05] MEDS ORDERED: VANCOMYCIN 750 MG in SODIUM CHLORIDE 0.9% 250 ML IVPB SCH (15:00)
[2022-07-05] MEDS ORDERED: FUROSEMIDE 10 MG/ML 4 ML VIAL IV SCH (21:00)
--- NOTE | 2022-07-05 22:27 | PN ---
PROGRESS NOTE SUBJECTIVE: She had an MRI of her brain, which shows multiple areas of possible small embolism, unclear etiology. She has a recent history of metastatic colon cancer with severe thoracic burst compression fracture, cardiomyopathy due to chemo. She has been obtunded since her MRI all day today, we are going to give her another dose of Narcan. She maybe had altered mental status, possibly secondary to stroke. Wean off her pain medicines at this time to wake her up, give her Narcan twice. OBJECTIVE: VITAL SIGNS: Temperature 98.7, pulse 99 to 100, respiratory rate 16 to 20, blood pressure 107-118/60-70. CARDIOVASCULAR: S1, S2. LUNGS: Decreased breath sounds x4. HEMATOLOGY: She is thin, cachectic. ENDOCRINE: BMI is 17. NEUROLOGIC: She to deep stimuli. Opens her eyes and goes back to sleep. ASSESSMENT: Probable acute cerebrovascular accident, is embolic in nature, making her more confused, altered mental status, status post T4 kyphoplasty, T4 compression fracture, chronic obstructive pulmonary disease, metastatic colon cancer, give her Lasix, KVO, BNP. Check echo. Cardiology consult, give her some more Lasix, updrafts will be done as well as steroids. PROGNOSIS: Guarded. MMODL / IJN: [id number] /
--- NOTE | 2022-07-07 11:41 | CDI ---
Documentation Clarification Form Date: 07/07/22 From: Joie Hernandez Admit Date: 06/29/2022 06:24:00 PM Patient Name: Dariana Richards Visit Number: [id number] Discharge Date: 07/05/2022 02:15:00 PM ATTENTION: The Clinical Documentation Specialists (CDI) and [facility] Coding Staff appreciate your assistance in clarifying documentation. Please respond to the clarification below the line at the bottom and electronically sign. The CDI & [facility] Coding staff will review the response and follow-up if needed. Please note: Queries are made part of the Legal Health Record. If you have any questions, please contact the author of this message via ITS. Dr. Johan Desouza, A compression fracture of the T4 documented in the H&P. Additional clarification regarding the etiology of the pathological fracture is requested. Patient history/risk factors: osteoporosis, severe PCM w BMI of 12.9, acute/chronic systolic CHF, HTN, acute hypoxic respiratory failure, acute ischemic stroke with embolic phenomenon over bilateral hemispheres, encephalopathy, pneumonia, COPD w acute exacerbation, cardiomyopathy due to chemo Clinical Indicators: Chronic pain. Path: Fragments of benign bone showing features consistent with a fracture. Treatment: T4 kyphoplasty with biopsy on 06/27 Please clarify the etiology of the compression fracture, if known: [ ] Osteoporosis (specify type if known): [ ] Drug induced [ ] Idiopathic [ ] Postmenopausal [ ] Post-traumatic [ ] Other (please specify): [ ] Unable to determine MTDD
--- NOTE | 2022-07-07 12:47 | CDI ---
Documentation Clarification Form Date: 07/07/22 From: Joie Hernandez Admit Date: 06/29/2022 06:24:00 PM Patient Name: Dariana Richards Visit Number: [id number] Discharge Date: 07/05/2022 02:15:00 PM ATTENTION: The Clinical Documentation Specialists (CDI) and [facility] Coding Staff appreciate your assistance in clarifying documentation. Please respond to the clarification below the line at the bottom and electronically sign. The CDI & [facility] Coding staff will review the response and follow-up if needed. Please note: Queries are made part of the Legal Health Record. If you have any questions, please contact the author of this message via ITS. Dr. Johan Desouza, The patients principal diagnosis the diagnosis that was chiefly responsible for the admission - has not been clearly identified and clarification is requested. The patient presented with the following for outpatient surgery of T4 kyphoplasty with biopsy on 06/27. She was admitted on 06/29 after losing IV access. Acute and chronic pain. History/Risk factors: Hx of colon ca with mets to lungs and liver, severe PCM w BMI 129, cachetic, COPD Clinical Indicators: Refused IV placement. Started Marinol to stimulate appetite. Vital Signs: T 97.4, P 79, R 15, BP 127/73, O2 97 NC 2 L (started 06/30) Oxycodone PRN In your professional opinion, can you please clarify which diagnosis, after study, was the reason chiefly responsible for the admission? [ ] T4 fracture [ ] Acute pain from fracture [ ] Chronic pain from fracture [ ] Other, please specify [ ] Unable to determine MTDD
--- NOTE | 2022-07-09 13:18 | PN ---
PROGRESS NOTE Acute pain from a T4 fracture MMODL / IJN: [id number] /
--- NOTE | 2022-07-11 10:11 | CDI ---
Documentation Clarification Form Date: 07/11/22 From: Joie Hernandez Admit Date: 06/29/2022 06:24:00 PM Patient Name: Dariana Richards Visit Number: [id number] Discharge Date: 07/05/2022 02:15:00 PM ATTENTION: The Clinical Documentation Specialists (CDI) and [facility] Coding Staff appreciate your assistance in clarifying documentation. Please respond to the clarification below the line at the bottom and electronically sign. The CDI & [facility] Coding staff will review the response and follow-up if needed. Please note: Queries are made part of the Legal Health Record. If you have any questions, please contact the author of this message via ITS. Dr. Magdiel Aguirre, A compression fracture of T4 is documented in the H&P. Additional clarification regarding the etiology of the fracture is requested. 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 Path: Fragments of benign bone showing features consistent with a fracture. 06/21 X-Ray Results: Demonstrate kyphotic deformity throughout the thoracic spine. There is old compression fracture noted at T12 and likely new compression fracture at T4 there is acute kyphotic deformity at T4 secondary to this. There is more chronic kyphotic deformity at T12 due to the compression. T12 is approximate 75% compressed will T4 is more 20-25% compressed. Treatment: T4 kyphoplasty with biopsy on 06/27 Please clarify the etiology of the fracture, if known: [ ] Traumatic [ ] Stress [ ] Pathological (specify cause): ___ [ ] Neoplastic disease [ ] Osteoporosis [ ] Other (please specify): [ ] Unable to determine Osteoporosis MTDD
--- NOTE | 2022-07-12 23:37 | P.CONS ---
History of Present Illness - Reason for Consult Consult date: 07/05/22 Health care associated pneumonia Requesting physician: Johan Desouza - Chief Complaint Increasing shortness of breath x few days - History of Present Illness History of Present Illness : Patient is a 71-year-old female with a past medical he significant for metastatic colon cancer presenting to the hospital more than a week ago on 06/29/2022 for evaluation of increasing pain to the upper back area and this patient was noticed to have acute T4 fracture at the patient underwent T4 kyphoplasty with biopsy on June 27, 2022, patient on presentation to the hospital was afebrile and no fever have been recorded subsequently patient did have a worsening of the white count was up to 17.5 today creatinine has been normal patient noticed to have worsening of her respiratory status and did have a CT of the chest completed on 07/04/2022 which shows extensive right upper lobe pneumonia which is new compared to old exam patient was started on cefepime and vancomycin infectious he was consulted for healthcare associated pneumonia most information has been obtained from review the chart talking nursing staff and the patient is currently lethargic sleepy and unable to provide any history secondary to respiratory distress Review of system: Positive points mentioned in history of present illness complete review could not be obtained because of his underlying medical condition Past medical history : Reviewed, documented below Past surgical history : Reviewed, documented below Social history: Reviewed, documented below Medications: Reviewed, as documented below EXAMINATION: Vital sigans= Reviewed and documented below GENERAL DESCRIPTION: Elderly female in mild respiratory distress. HEENT: Shows Pallor , no scleral icterus. Oral mucous membrane is dry. NECK: Trachea central, no thyromegaly. LUNGS: Unlabored breathing. Coarse breath sounds bilaterally HEART: S1, S2, regular rate and rhythm. ABDOMEN: Soft, no tenderness , guarding or rigidity EXTREMITIES: No edema feet SKIN: No rash, no masses palpable. NEUROLOGICAL: The patient is sleepy lethargic orientation could not determine LABS AND RADIOLOGY: Reviewed results see below Assessment : Patient with acute respiratory failure that is prolific during this patient with evidence of extensive right upper lobe pneumonia likely nosocomial in this patient who has been in and out of the hospital and will need to cover for the resistant gram-positive as well as gram-negative Plan: 1-patient to continue with the vancomycin and cefepime 2-try to obtain a sputum for gram stain and culture 3-gentle IV fluid We will follow on clinical condition and cultures to further adjust medication if needed Thank you for this consultation we will follow the patient along with you Past Medical History Past Medical History: Cancer, COPD Additional Past Medical History / Comment(s): Colon cancer, CARDIOMYOPATHY, RETURN OF CANCER WITH METS TO LIVER AND LUNG- 2020 History of Any Multi-Drug Resistant Organisms: None Reported Past Surgical History: Heart Catheterization Additional Past Surgical History / Comment(s): Colon surgery to remove mass - August 2018. HAS A PORT A CATH Past Anesthesia/Blood Transfusion Reactions: No Reported Reaction Past Psychological History: Anxiety Additional Psychological History / Comment(s): RELATED TO PAIN Smoking Status: Former smoker Past Alcohol Use History: None Reported Additional Past Alcohol Use History / Comment(s): STARTED SMOKING AT AGE 27 QUIT SMOKING 2017 SMOKED 1/2PPD Past Drug Use History: None Reported - Past Family History Mother Family Medical History: No Reported History Additional Family Medical History / Comment(s): cataracts Medications and Allergies Home Medications Medication Instructions Recorded Confirmed Type Prochlorperazine [Compazine] 1 tab PO DIRECTED PRN 04/25/21 07/05/22 History Morphine Sulfate ER [Ms Contin] 15 mg PO Q12HR 09/19/21 07/05/22 History ALPRAZolam [Xanax] 0.25 mg PO BID PRN 06/23/22 07/05/22 History Fluticasone/Umeclidin/Vilanter 1 inhalation INHALATION DIRECTED 06/23/22 07/05/22 History [Trelegy Ellipta 100-62.5-25] Furosemide [Lasix] 20 mg PO DAILY PRN 06/23/22 07/05/22 History Pregabalin [Lyrica] 150 mg PO BID #60 cap 06/27/22 07/05/22 Rx oxyCODONE-APAP 5-325MG [Percocet 1 tab PO Q4HR PRN #42 tab 06/27/22 07/05/22 Rx 5-325 mg] oxyCODONE HCL [oxyCODONE HCL (IR)] 15 mg PO Q4H PRN 06/28/22 07/05/22 History Allergies Allergy/AdvReac Type Severity Reaction Status Date / Time No Known Allergies Allergy Verified 06/23/22 11:03 Physical Exam Vitals: Vital Signs Temp Pulse Pulse Resp BP BP BP 07/05/22 08:38 116 H 07/05/22 08:31 116 H 07/05/22 08:30 116 H 07/05/22 08:14 112 H 07/05/22 08:00 99.2 F 114 H 22 153/88 07/05/22 01:04 98.3 F 124 H 18 108/66 07/05/22 00:21 114 H 07/05/22 00:09 115 H 07/04/22 20:52 111 H 07/04/22 20:46 110 H 07/04/22 20:38 112 H 07/04/22 20:04 98.6 F 109 H 18 112/65 07/04/22 17:45 104 H 16 121/77 07/04/22 17:40 104 H 16 121/77 07/04/22 16:02 96 07/04/22 15:48 104 H 07/04/22 12:03 107 H 20 107/73 07/04/22 11:12 100 07/04/22 10:59 96 Pulse Ox 07/05/22 08:38 07/05/22 08:31 07/05/22 08:30 07/05/22 08:14 07/05/22 08:00 98 07/05/22 01:04 95 07/05/22 00:21 07/05/22 00:09 07/04/22 20:52 07/04/22 20:46 07/04/22 20:38 92 L 07/04/22 20:04 93 L 07/04/22 17:45 98 07/04/22 17:40 98 07/04/22 16:02 07/04/22 15:48 07/04/22 12:03 97 07/04/22 11:12 07/04/22 10:59 Intake and Output 07/04/22 07/05/22 07/05/22 22:59 06:59 14:59 Other: Voiding Method Diaper # Voids 0 1 Results CBC & Chem 7: 07/05/22 02:14 07/05/22 02:14 Labs: Abnormal Lab Results - Last 24 Hours (Table) 07/04/22 07/05/22 07/05/22 Range/Units 11:15 01:20 02:14 WBC 17.5 H (3.8-10.6) k/uL RBC 3.59 L (3.80-5.40) m/uL Hgb 11.3 L (11.4-16.0) gm/dL MCV 101.0 H (80.0-100.0) fL RDW 17.3 H (11.5-15.5) % Neutrophils # (Manual) 16.10 H (1.3-7.7) k/uL Lymphocytes # (Manual) 0.53 L (1.0-4.8) k/uL Monocytes # (Manual) 1.05 H (0-1.0) k/uL PT 13.8 H (9.0-12.0) sec INR 1.3 H (<1.2) Creatinine (0.52-1.04) mg/dL Glucose (74-99) mg/dL ALT (4-34) U/L Alkaline Phosphatase (38-126) U/L Total Protein (6.3-8.2) g/dL Albumin (3.5-5.0) g/dL Vitamin B12 >2000.0 H (200.0-944.0) pg/mL TSH 0.164 L (0.465-4.680) mIU/L 07/05/22 Range/Units 02:14 WBC (3.8-10.6) k/uL RBC (3.80-5.40) m/uL Hgb (11.4-16.0) gm/dL MCV (80.0-100.0) fL RDW (11.5-15.5) % Neutrophils # (Manual) (1.3-7.7) k/uL Lymphocytes # (Manual) (1.0-4.8) k/uL Monocytes # (Manual) (0-1.0) k/uL PT (9.0-12.0) sec INR (<1.2) Creatinine 0.35 L (0.52-1.04) mg/dL Glucose 128 H (74-99) mg/dL ALT 38 H (4-34) U/L Alkaline Phosphatase 728 H (38-126) U/L Total Protein 5.2 L (6.3-8.2) g/dL Albumin 2.7 L (3.5-5.0) g/dL Vitamin B12 (200.0-944.0) pg/mL TSH (0.465-4.680) mIU/L
== END 2022-07-05 14:15 | disposition hospice, inpatient (51) | DRG 477 ==
LOC: OR 06:32 → 6NMEDSUR 08:50 → OR 06-29 07:00 → 6NMEDSUR 06-29 07:00 → OBSVTOIN 06-29 18:24
PROVIDERS: ADMIT Family Medicine; ATTEND Family Medicine
PROC: 0PB43ZX Excision of Thoracic Vertebra, Percutaneous Approach, Diagnostic (ICD-10-PCS; principal; 2022-06-27 07:30)
PROC: 0PU43JZ Supplement Thoracic Vertebra with Synthetic Substitute, Percutaneous Approach (ICD-10-PCS; principal; 2022-06-27 07:30)
PROC: 0PS43ZZ Reposition Thoracic Vertebra, Percutaneous Approach (ICD-10-PCS; principal; 2022-06-27 07:30)
DX: M80.88XA Other osteoporosis with current pathological fracture, vertebra(e), initial encounter for fracture (principal); E43 Unspecified severe protein-calorie malnutrition; J96.01 Acute respiratory failure with hypoxia; I63.443 Cerebral infarction due to embolism of bilateral cerebellar arteries; I50.23 Acute on chronic systolic (congestive) heart failure; J18.9 Pneumonia, unspecified organism; G93.49 Other encephalopathy; R64 Cachexia; C78.01 Secondary malignant neoplasm of right lung; C78.7 Secondary malignant neoplasm of liver and intrahepatic bile duct; C78.02 Secondary malignant neoplasm of left lung; I42.7 Cardiomyopathy due to drug and external agent; I67.89 Other cerebrovascular disease; J44.1 Chronic obstructive pulmonary disease with (acute) exacerbation; J44.0 Chronic obstructive pulmonary disease with (acute) lower respiratory infection; Z68.1 Body mass index [BMI] 19.9 or less, adult; M47.814 Spondylosis without myelopathy or radiculopathy, thoracic region; M40.14 Other secondary kyphosis, thoracic region; I25.10 Atherosclerotic heart disease of native coronary artery without angina pectoris; E78.5 Hyperlipidemia, unspecified; G89.29 Other chronic pain; F41.9 Anxiety disorder, unspecified; T45.1X5A Adverse effect of antineoplastic and immunosuppressive drugs, initial encounter; E86.0 Dehydration; G47.9 Sleep disorder, unspecified; Z79.51 Long term (current) use of inhaled steroids; Z79.891 Long term (current) use of opiate analgesic; Z79.899 Other long term (current) drug therapy; Z87.891 Personal history of nicotine dependence; Z99.3 Dependence on wheelchair; Z85.038 Personal history of other malignant neoplasm of large intestine; Z92.21 Personal history of antineoplastic chemotherapy; Z71.3 Dietary counseling and surveillance
CPT/HCPCS: 70553; 71045; 71250; 72070; 80053; 82140; 82607; 82746; 83605; 83880; 84145; 84439; 84443; 85025; 85610; 86850; 86900; 86901; 87040; 88307; 88311; 88341; 88342; 93306; 94640; 94760; 95816